=== PATIENT | male | born 1965 ===

== ENCOUNTER 2018-10-10 09:17 | Inpatient (IN) | payer MEDICARE, OTHER ==
[2018-10-10 09:21] VITALS: BMI 35.7
--- NOTE | 2018-10-10 10:07 | ED PDOC ---
HPI: SOB/CHF/COPD Time Seen by Provider: 10/10/18 09:30 Chief Complaint (Nursing): Shortness Of Breath Chief Complaint (Provider): Cough History Per: Patient History/Exam Limitations: no limitations Onset/Duration Of Symptoms: Days Current Symptoms Are (Timing): Still Present Additional Complaint(s): 52 y/o male presents to the ED for evaluation of several days of coughing. Patient states coughing is so severe, he has developed abdominal soreness. Patient notes he has been unable to sleep and feels feverish. Patient reports that after being unable to sleep, he had one episode of sleep walking last night when he fell. Patient is currently complaining of pain to the right hip. Otherwise, patient denies taking any medications for fever, chest pain, nausea and vomiting. PMD: Ha Donald Past Medical History Reviewed: Historical Data, Nursing Documentation, Vital Signs Vital Signs: Last Vital Signs Temp 97.7 F 10/10/18 09:22 Pulse 89 10/10/18 09:27 Resp 18 10/10/18 09:22 BP 174/101 H 10/10/18 09:27 Pulse Ox 96 10/10/18 09:27 - Medical History PMH: HTN, Pneumonia (Jun 2018), End Stage Renal Disease, Chronic Kidney Disease, Sleep Apnea - Surgical History Surgical History: No Surg Hx - Family History Family History: States: Unknown Family Hx - Immunization History Hx Tetanus Toxoid Vaccination: Yes Hx Influenza Vaccination: Yes Hx Pneumococcal Vaccination: Yes - Home Medications Home Medications: Ambulatory Orders Medication Instructions Recorded Atorvastatin [Lipitor] 10 mg PO DAILY 10/10/18 Ferric Citrate [Auryxia] 3 tab PO TID 10/10/18 Glipizide [Glipizide ER] 5 mg PO DAILY 10/10/18 Labetalol [Trandate] 200 mg PO DAILY 10/10/18 Linagliptin [Tradjenta] 5 mg PO DAILY 10/10/18 - Allergies Allergies/Adverse Reactions: Allergies Allergy/AdvReac Type Severity Reaction Status Date / Time No Known Allergies Allergy Verified 10/10/18 09:57 Review of Systems ROS Statement: Except As Marked, All Systems Reviewed And Found Negative Cardiovascular: Negative for: Chest Pain Respiratory: Positive for: Cough Gastrointestinal: Positive for: Abdominal Pain (SORENESS). Negative for: Nausea, Vomiting Neurological: Positive for: Other (Difficulty sleeping and sleep walking) Physical Exam - Reviewed Nursing Documentation Reviewed: Yes Vital Signs Reviewed: Yes - Physical Exam Appears: Positive for: No Acute Distress Head Exam: Positive for: ATRAUMATIC Skin: Positive for: Normal Color, Warm, Dry Eye Exam: Positive for: Normal appearance Neck: Positive for: Normal, Painless ROM, Supple Cardiovascular/Chest: Positive for: Regular Rate, Rhythm. Negative for: Murmur Respiratory: Positive for: Normal Breath Sounds. Negative for: Respiratory Distress Gastrointestinal/Abdominal: Positive for: Soft. Negative for: Tenderness Extremity: Positive for: Normal ROM (upper/lower), Swelling (Area of welling to the right hip ). Negative for: Other (ecchymosis) Neurological/Psych: Positive for: Awake, Alert, Oriented (x3). Negative for: Motor/Sensory Deficits - Laboratory Results Result Diagrams: 10/12/18 08:45 10/12/18 19:08 - ECG O2 Sat by Pulse Oximetry: 96 (RA) Pulse Ox Interpretation: Normal Medical Decision Making Medical Decision Making: Time: 1006 A/P: Workup for cough -- CXR -- Basic labs, -- Right hip XR due to fall -- Reassess patient. -- EKG -- BMP -- CBC with Differentials -- CXR Two Views -- Glucose, POC -- Hip Right XR -- Influenza A B Time: 1053 CXR RESULTS Date of service: 10/10/2018 HISTORY: cough COMPARISON: 11/06/2008 TECHNIQUE: Chest PA and lateral FINDINGS: LUNGS: Coalescent airspace opacity mid right lung zone present-an interval change. PLEURA: No significant pleural effusion identified. No pneumothorax apparent. CARDIOVASCULAR: No aortic atherosclerotic calcification present. Mild cardiomegaly. Probable mild concomitant pulmonary venous congestion. OSSEOUS STRUCTURES: Thoracic spondylosis. VISUALIZED UPPER ABDOMEN: Normal. OTHER FINDINGS: None. IMPRESSION: Interval extensive airspace opacity right mid lung zone-an infiltrate is compatible with the clinical history of cough. Follow-up to resolution recommended. Comments: Study marked for PA review . Time: 1139 -- Spoke to Dr. Donald patient to be admitted for emergent dialysis. Scribe Attestation: Documented by Marilin Trimble, acting as a scribe Linnea Guerrero MD. Provider Scribe Attestation: All medical record entries made by the Scribe were at my direction and personally dictated by me. I have reviewed the chart and agree that the record accurately reflects my personal performance of the history, physical exam, medical decision making, and the department course for this patient. I have also personally directed, reviewed, and agree with the discharge instructions and disposition. Disposition - Clinical Impression Clinical Impression: ESRF (end stage renal failure) - Disposition Disposition Time: 11:42 Condition: FAIR
[2018-10-10 10:44] LABS: BASO % 0.6 % (0.0-2.0); EOS # 0.4 K/uL (0.0-0.7); EOS % 6.4 % (0.0-4.0); HEMOGLOBIN 10.5 g/dL (12.0-18.0); LYMPH # 0.9 K/uL (1.0-4.3); LYMPH % 13.9 % (20.0-40.0); MEAN CELL VOLUME 92.6 fl (80.0-94.0); MEAN CORPUSCULAR HGB CONC 32.4 g/dL (33.0-37.0); MEAN PLATELET VOLUME 10.3 fl (7.2-11.7); MONO # 0.5 K/uL (0.0-0.8); MONO % 8.1 % (0.0-10.0); NEUT # 4.6 K/uL (1.8-7.0); NRBC % 0.1 % (0.0-0.0); RBC 3.51 Mil/uL (4.40-5.90); RED CELL DISTRIBUTION WIDTH 15.6 % (11.5-14.5); WHITE BLOOD COUNT 6.5 K/uL (4.8-10.8)
[2018-10-10 11:11] LABS: CALCIUM 8.7 mg/dL (8.4-10.2)
[2018-10-10] MEDS ORDERED: Albuterol-Ipratrop 3 mg / 0.5 (3 ml) UD INH STA (11:24)
--- NOTE | 2018-10-10 11:36 | RAD ---
Date of service: 10/10/2018 HISTORY: cough COMPARISON: 11/06/2008 TECHNIQUE: Chest PA and lateral FINDINGS: LUNGS: Coalescent airspace opacity mid right lung zone present-an interval change. PLEURA: No significant pleural effusion identified. No pneumothorax apparent. CARDIOVASCULAR: No aortic atherosclerotic calcification present. Mild cardiomegaly. Probable mild concomitant pulmonary venous congestion. OSSEOUS STRUCTURES: Thoracic spondylosis. VISUALIZED UPPER ABDOMEN: Normal. OTHER FINDINGS: None. IMPRESSION: Interval extensive airspace opacity right mid lung zone-an infiltrate is compatible with the clinical history of cough. Follow-up to resolution recommended. Comments: Study marked for PA review .
[2018-10-10] MEDS ORDERED: Albuterol-Ipratrop 3 mg / 0.5 (3 ml) UD ONE (11:52)
--- NOTE | 2018-10-10 12:55 | RAD ---
Date of service: 10/10/2018 PROCEDURE: Pelvis and right hip HISTORY: right hip Pain. No history of recent/ related trauma provided. COMPARISON: None TECHNIQUE: Standard protocol for this study/examination. FINDINGS: There are no osseous abnormalities to suggest fracture. The pelvic ring is intact. Preserved femoral-acetabular relationship. Negative study for protrusio, subluxation or dislocation. Degenerative changes: Mild and symmetrical. IMPRESSION: No acute findings related to/ accounting for the clinical presentation.
--- NOTE | 2018-10-10 17:37 | CARD ---
APPROVED REPORT Date of service: 10/10/2018 EKG Measurement Heart [id number] <Conclusion> Normal sinus rhythm Prolonged QT Abnormal ECG
--- NOTE | 2018-10-10 21:18 | CP.PCM.HP ---
History of Present Illness - History of Present Illness History of Present Illness: 52 y/o male presents to the ED for evaluation of one week of severe coughing. Patient notes he has been unable to sleep and feels fever. Patient is currently complaining of pain to the right hip. Patient with ESRF on HD he is not c/o with HD for one week. Otherwise, patient denies chest pain, nausea and vomiting. An infiltrate. Present on Admission - Present on Admission Any Indicators Present on Admission: No Review of Systems - Constitutional Constitutional: As Per HPI - EENT Eyes: As Per HPI - Cardiovascular Cardiovascular: As Per HPI - Respiratory Respiratory: Cough - Gastrointestinal Gastrointestinal: As Per HPI - Musculoskeletal Musculoskeletal: As Per HPI - Neurological Neurological: As Per HPI - Psychiatric Psychiatric: As Per HPI Past Patient History - Past Social History Smoking Status: Never Smoked - CARDIAC Hx Cardiac Disorders: Yes (CAD, HTN, ANGINA) - PULMONARY Hx Pneumonia: Yes (Jun 2018) Hx Sleep Apnea: Yes - HEENT Other/Comment: Right eye Floaters, Left eye Diabetic retinopathy - RENAL Hx Chronic Kidney Disease: Yes (ESRD) - ENDOCRINE/METABOLIC Hx Endocrine Disorders: Yes (Diabetes) - HEMATOLOGICAL/ONCOLOGICAL Hx Blood Disorders: No - MUSCULOSKELETAL/RHEUMATOLOGICAL Hx Falls: Yes (10/09/18 Pt. Fell during sleep walking episode.) - PSYCHIATRIC Hx Substance Use: No - SURGICAL HISTORY Hx Angiogram: Yes Hx Cardiac Catheterization: Yes () Hx Eye Surgery: Yes (Diabetic retinopathy, Floaters) Other/Comment: Left heart cathertization, Selective coronary angiography, Left ventriculogram, Percutaneous drug-eluting stent implantation in the distal right coronary artery. - ANESTHESIA Hx Anesthesia: Yes Hx Anesthesia Reactions: No Hx Malignant Hyperthermia: No Meds Allergies/Adverse Reactions: Allergies Allergy/AdvReac Type Severity Reaction Status Date / Time No Known Allergies Allergy Verified 10/10/18 09:57 Physical Exam - Constitutional Appears: Non-toxic - Head Exam Head Exam: ATRAUMATIC, NORMAL INSPECTION, NORMOCEPHALIC - Eye Exam Eye Exam: Normal appearance - ENT Exam ENT Exam: Mucous Membranes Moist - Neck Exam Neck exam: Positive for: Full Rom - Respiratory Exam Respiratory Exam: Decreased Breath Sounds, Rhonchi - Cardiovascular Exam Cardiovascular Exam: REGULAR RHYTHM, +S1, +S2 - GI/Abdominal Exam GI & Abdominal Exam: Normal Bowel Sounds - Extremities Exam Extremities exam: Positive for: normal inspection Results - Vital Signs Recent Vital Signs: Last Vital Signs Temp 98.6 F 10/10/18 20:19 Pulse 100 H 10/10/18 20:19 Resp 16 10/10/18 20:19 BP 166/97 H 10/10/18 20:19 Pulse Ox 95 10/10/18 20:19 - Labs Result Diagrams: 10/10/18 10:20 10/10/18 10:20 Labs: Laboratory Results - last 24 hr 10/10/18 10/10/18 10/10/18 09:41 10:20 10:20 WBC 6.5 RBC 3.51 L Hgb 10.5 L Hct 32.5 L MCV 92.6 MCH 30.0 MCHC 32.4 L RDW 15.6 H Plt Count 180 MPV 10.3 Neut % (Auto) 71.0 Lymph % (Auto) 13.9 L [place] % (Auto) 8.1 Eos % (Auto) 6.4 H Baso % (Auto) 0.6 Neut # (Auto) 4.6 Lymph # (Auto) 0.9 L [place] # (Auto) 0.5 Eos # (Auto) 0.4 Baso # (Auto) 0.0 Sodium 143 Potassium 5.8 H Chloride 99 Carbon Dioxide 22 Anion Gap 28 H BUN 117 H* Creatinine 15.8 H* Est GFR ( Amer) 4 Est GFR (Non-Af Amer) 3 POC Glucose (mg/dL) 217 H Random Glucose 202 H Calcium 8.7 Influenza Typ A,B (EIA) 10/10/18 10:20 WBC RBC Hgb Hct MCV MCH MCHC RDW Plt Count MPV Neut % (Auto) Lymph % (Auto) [place] % (Auto) Eos % (Auto) Baso % (Auto) Neut # (Auto) Lymph # (Auto) [place] # (Auto) Eos # (Auto) Baso # (Auto) Sodium Potassium Chloride Carbon Dioxide Anion Gap BUN Creatinine Est GFR ( Amer) Est GFR (Non-Af Amer) POC Glucose (mg/dL) Random Glucose Calcium Influenza Typ A,B (EIA) Negative for flu a/b Assessment & Plan (1) ESRF (end stage renal failure) Status: Acute (2) Pneumonia Status: Acute (3) Congestive heart disease Status: Acute (4) Diabetes Status: Acute - Assessment and Plan (Free Text) Plan: As per orders
[2018-10-10] MEDS: Insulin Regular 100 units/ml SC SCH (22:45)
--- NOTE | 2018-10-10 23:56 | CP.PCM.CON ---
History of Present Illness - History of Present Illness History of Present Illness: renal consult note 52 yr old with esrd. on hd tts at [facility], htn is admitted with sob. he has missed hd for a week as was travelling. no fever or chills. in er noted to be in volume overload with cxr showing pulm edema complete ros is negative meds and labs reviewed pmh as above social hx non smoker no alcohol fam hx negative for kidney disease vitals reviewed in resp dsitress heent normal op moist no jvd s1s2 preent bl crepts present abd soft edema + ao times 3 cooperative esrd/chf/htn/hyperkalemia hd tts, will do today , assess tomorrow fo extar session hyperkalemia should improve with hd chf/resp distress: uf as tolerated anemia stable epo as needed i have ordered a phos level for morning resume home meds Past Patient History - Past Social History Smoking Status: Never Smoked - CARDIAC Hx Cardiac Disorders: Yes (CAD, HTN, ANGINA) - PULMONARY Hx Pneumonia: Yes (Jun 2018) Hx Sleep Apnea: Yes - HEENT Other/Comment: Right eye Floaters, Left eye Diabetic retinopathy - RENAL Hx Chronic Kidney Disease: Yes (ESRD) - ENDOCRINE/METABOLIC Hx Endocrine Disorders: Yes (Diabetes) - HEMATOLOGICAL/ONCOLOGICAL Hx Blood Disorders: No - MUSCULOSKELETAL/RHEUMATOLOGICAL Hx Falls: Yes (10/09/18 Pt. Fell during sleep walking episode.) - PSYCHIATRIC Hx Substance Use: No - SURGICAL HISTORY Hx Angiogram: Yes Hx Cardiac Catheterization: Yes () Hx Eye Surgery: Yes (Diabetic retinopathy, Floaters) Other/Comment: Left heart cathertization, Selective coronary angiography, Left ventriculogram, Percutaneous drug-eluting stent implantation in the distal right coronary artery. - ANESTHESIA Hx Anesthesia: Yes Hx Anesthesia Reactions: No Hx Malignant Hyperthermia: No Meds Allergies/Adverse Reactions: Allergies Allergy/AdvReac Type Severity Reaction Status Date / Time No Known Allergies Allergy Verified 10/10/18 09:57 - Medications Medications: Current Medications Atorvastatin Calcium (Lipitor) 10 mg PO DAILY [facility] Glipizide (Glucotrol Xl) 5 mg PO DAILYWM [facility] Home Med (Ferric Citrate [Auryxia]) 3 tab PO TID [facility] Ceftriaxone Sodium 1 gm/ (Sodium Chloride) 100 mls @ 100 mls/hr IVPB DAILY [facility]; Protocol Insulin Human Regular (Humulin R) 0 units SC ACHS [facility]; Protocol Last Admin: 10/10/18 22:45 Dose: Not Given Labetalol HCl (Trandate) 200 mg PO DAILY [facility] Sitagliptin Phosphate (Januvia) 25 mg PO DAILY [facility] Results - Vital Signs Recent Vital Signs: Last Vital Signs Temp 98.6 F 10/10/18 20:19 Pulse 100 H 10/10/18 20:19 Resp 16 10/10/18 20:19 BP 166/97 H 10/10/18 20:19 Pulse Ox 95 10/10/18 20:19 - Labs Result Diagrams: 10/10/18 10:20 10/10/18 10:20 Labs: Laboratory Results - last 24 hr 10/10/18 10/10/18 10/10/18 09:41 10:20 10:20 WBC 6.5 RBC 3.51 L Hgb 10.5 L Hct 32.5 L MCV 92.6 MCH 30.0 MCHC 32.4 L RDW 15.6 H Plt Count 180 MPV 10.3 Neut % (Auto) 71.0 Lymph % (Auto) 13.9 L [place] % (Auto) 8.1 Eos % (Auto) 6.4 H Baso % (Auto) 0.6 Neut # (Auto) 4.6 Lymph # (Auto) 0.9 L [place] # (Auto) 0.5 Eos # (Auto) 0.4 Baso # (Auto) 0.0 Sodium 143 Potassium 5.8 H Chloride 99 Carbon Dioxide 22 Anion Gap 28 H BUN 117 H* Creatinine 15.8 H* Est GFR ( Amer) 4 Est GFR (Non-Af Amer) 3 POC Glucose (mg/dL) 217 H Random Glucose 202 H Calcium 8.7 Influenza Typ A,B (EIA) 10/10/18 10/10/18 10:20 22:16 WBC RBC Hgb Hct MCV MCH MCHC RDW Plt Count MPV Neut % (Auto) Lymph % (Auto) [place] % (Auto) Eos % (Auto) Baso % (Auto) Neut # (Auto) Lymph # (Auto) [place] # (Auto) Eos # (Auto) Baso # (Auto) Sodium Potassium Chloride Carbon Dioxide Anion Gap BUN Creatinine Est GFR ( Amer) Est GFR (Non-Af Amer) POC Glucose (mg/dL) 240 H Random Glucose Calcium Influenza Typ A,B (EIA) Negative for flu a/b
[2018-10-11] MEDS ORDERED: Albuterol-Ipratrop 3 mg / 0.5 (3 ml) UD INH STA (01:32)
--- NOTE | 2018-10-11 02:01 | CP.PCM.PCO ---
Addendum Addendum: 10/11/18 01:35 The gag writer was called for this 52 y/o M due to chest pain and SOB. Pt complains of mid-sternum chest pain, began 1 hour ago, pressure-like, 8/10 intensity, non- radiating that aggravates with coughing. Pt reports SOB and non-productive cough that also aggravated 1 hour ago. --O2 sat is 94-96% at 4L/min, BP 176/95, HR 95, RR 18. --Pt is lying on bed, uncomfortable, coughing, HD device by bedside not started yet. S1 and S2 present, regular rhythm. Decreased breath sound and ronchi on R lung hi. --Electrocardiogram ordered. No ST changes or acute abnormalities observed when compared with admission EKG. --Nitroglycerin SL ordered, first dose provided relief to 4/10 pain intensity after 5 minutes. BP 160/100. Will administer a 2nd dose. --STAT Duoneb was ordered. 52 y/o M with ESRD admitted for pneumonia, had chest pain and aggravation of SOB. --Troponin x2 ordered, Q4H. (may be increased since ESRD, will look at increase level) --Proceed with hemodialysis. --Considering Nitro paste if recurrent pain.
[2018-10-11 06:15] LABS: TROPONIN I 0.055 ng/mL (0.00-0.120)
[2018-10-11 07:24] LABS: CALCIUM 8.8 mg/dL (8.4-10.2)
--- NOTE | 2018-10-11 09:10 | CP.PCM.PN ---
Subjective - Date & Time of Evaluation Date of Evaluation: 10/11/18 Time of Evaluation: 09:08 - Subjective Subjective: RENAL s: seen and examined sob is improved but still w/ some sob no cp today. finished dialysis a couple hours ago VSS gen: nad sclera: anicteric op: clear neck: supple cv: +s1+s2 no rub lungs: coarse bs b/l abd: soft nt nd no organomegaly ext: no edema neuro: A+Ox3 no focal defecit psych: nml affect skin no rash IMPRESSION esrd/chf/htn/hyperkalemia/pnemonia/anemia/secondary hyperpara HD TTS - next hd tomorrow, finished hd a couple horus ago K is improved bp stable abx for PNA per primary team phos at goal bp stble Objective - Vital Signs/Intake and Output Vital Signs (last 24 hours): Temp Pulse Resp BP Pulse Ox 98.5 F 87 20 142/88 94 L 10/11/18 08:35 10/11/18 08:35 10/11/18 08:35 10/11/18 08:35 10/11/18 08:35 - Medications Medications: Current Medications Atorvastatin Calcium (Lipitor) 10 mg PO DAILY [facility] Glipizide (Glucotrol Xl) 5 mg PO DAILYWM [facility] Home Med (Ferric Citrate [Auryxia]) 3 tab PO TID [facility] Ceftriaxone Sodium 1 gm/ (Sodium Chloride) 100 mls @ 100 mls/hr IVPB DAILY [facility]; Protocol Insulin Human Regular (Humulin R) 0 units SC ACHS [facility]; Protocol Last Admin: 10/10/18 22:45 Dose: Not Given Labetalol HCl (Trandate) 200 mg PO DAILY [facility] Nitroglycerin (Nitrostat Sl Tab) 0.4 mg SL Q5M PRN PRN Reason: Pain, severe (8-10) Last Admin: 10/11/18 01:51 Dose: 0.4 mg Sitagliptin Phosphate (Januvia) 25 mg PO DAILY [facility] - Labs Labs: 10/10/18 10:20 10/11/18 05:20
[2018-10-11] MEDS: GlipiZIDE 5 mg SR Tab PO SCH (09:59)
[2018-10-11] MEDS: Insulin Regular 100 units/ml SC SCH ×4 (09:59→22:18)
--- NOTE | 2018-10-11 11:25 | CP.PCM.PN ---
Subjective - Date & Time of Evaluation Date of Evaluation: 10/11/18 Time of Evaluation: 11:25 - Subjective Subjective: Patient condition improving. Will follow cxr Objective - Vital Signs/Intake and Output Vital Signs (last 24 hours): Temp Pulse Resp BP Pulse Ox 98.5 F 87 20 142/88 94 L 10/11/18 08:35 10/11/18 08:35 10/11/18 08:35 10/11/18 08:35 10/11/18 08:35 - Medications Medications: Current Medications Atorvastatin Calcium (Lipitor) 10 mg PO DAILY [facility] Last Admin: 10/11/18 10:01 Dose: 10 mg Glipizide (Glucotrol Xl) 5 mg PO DAILYWM [facility] Last Admin: 10/11/18 09:59 Dose: 5 mg Home Med (Ferric Citrate [Auryxia]) 3 tab PO TID [facility] Ceftriaxone Sodium 1 gm/ (Sodium Chloride) 100 mls @ 100 mls/hr IVPB DAILY [facility]; Protocol Last Admin: 10/11/18 10:02 Dose: 100 mls/hr Insulin Human Regular (Humulin R) 0 units SC ACHS [facility]; Protocol Last Admin: 10/11/18 09:59 Dose: 1 units Labetalol HCl (Trandate) 200 mg PO DAILY [facility] Last Admin: 10/11/18 10:02 Dose: 200 mg Nitroglycerin (Nitrostat Sl Tab) 0.4 mg SL Q5M PRN PRN Reason: Pain, severe (8-10) Last Admin: 10/11/18 01:51 Dose: 0.4 mg Sitagliptin Phosphate (Januvia) 25 mg PO DAILY [facility] Last Admin: 10/11/18 10:01 Dose: 25 mg Vitamin B Complex/Vit C/Folic Acid (Nephro-Cecilia) 1 tab PO DAILY [facility] - Labs Labs: 10/10/18 10:20 10/11/18 05:20 - Constitutional Appears: Non-toxic - Head Exam Head Exam: ATRAUMATIC, NORMAL INSPECTION, NORMOCEPHALIC - Eye Exam Eye Exam: Normal appearance - ENT Exam ENT Exam: Mucous Membranes Moist - Neck Exam Neck Exam: Full ROM - Respiratory Exam Respiratory Exam: Decreased Breath Sounds - Cardiovascular Exam Cardiovascular Exam: REGULAR RHYTHM, +S1, +S2 - GI/Abdominal Exam GI & Abdominal Exam: Soft, Normal Bowel Sounds - Neurological Exam Neurological Exam: Alert, Awake, CN II-XII Intact, Normal Gait, Oriented x3 - Psychiatric Exam Psychiatric exam: Normal Affect - Skin Skin Exam: Intact Assessment and Plan (1) ESRF (end stage renal failure) Status: Acute (2) Pneumonia Status: Acute (3) Congestive heart disease Status: Acute (4) Diabetes Status: Acute
--- NOTE | 2018-10-11 12:31 | RAD ---
Date of service: 10/11/2018 HISTORY: chf pneumonia COMPARISON: October 10, 2018. TECHNIQUE: Chest PA and lateral FINDINGS: LUNGS: Extensive infiltrates primarily affecting the right lower lobe. Less pronounced changes identified at the right base. PLEURA: No significant pleural effusion identified. No pneumothorax apparent. CARDIOVASCULAR: No aortic atherosclerotic calcification present. Cardiomegaly. No evidence of acute, significant cardiovascular disease. OSSEOUS STRUCTURES: No significant abnormalities. VISUALIZED UPPER ABDOMEN: Normal. OTHER FINDINGS: None. IMPRESSION: Stable bilateral lower lobe infiltrates are better visualized on the current study. These affect the right lower lobe to a greater extent left.
--- NOTE | 2018-10-11 14:46 | CP.PCM.CON ---
History of Present Illness - History of Present Illness History of Present Illness: 52 y/o male presents to the ED for evaluation of several days of coughing. Patient notes he has been unable to sleep and feels feverish. Patient reports that after being unable to sleep, He recently missed a week of HD ID consulted for antibiotic management - Medical History PMH: HTN, Pneumonia (Jun 2018), End Stage Renal Disease, Chronic Kidney Disease, Sleep Apnea - Surgical History right arm AV Fistula Review of Systems - Constitutional Constitutional: As Per HPI - EENT Eyes: absent: As Per HPI, Blind Spots, Blurred Vision, Change in Vision, Decr eased Night Vision, Diplopia, Discharge, Dry Eye, Exophthalmos, Floaters, Irritation, Itchy Eyes, Loss of Peripheral Vision, Pain, Photophobia, Requires Corrective Lenses, Sees Flashes, Spots in Vision, Tunnel Vision, Other Visual Disturbances, Loss of Vision, Other Ears: absent: As Per HPI, Decreased Hearing, Ear Discharge, Ear Pain, Tinnitus, Abnormal Hearing, Disequilibrium, Dizziness, Other Nose/Mouth/Throat: absent: As Per HPI, Epistaxis, Nasal Congestion, Nasal Discharge, Nasal Obstruction, Nasal Trauma, Nose Pain, Post Nasal Drip, Sinus Pain, Sinus Pressure, Bleeding Gums, Change in Voice, Dental Pain, Dry Mouth, Dysphagia, Halitosis, Hoarsness, Lip Swelling, Mouth Lesions, Mouth Pain, Odynophagia, Sore Throat, Throat Swelling, Tongue Swelling, Facial Pain, Neck Pain, Neck Mass, Other - Cardiovascular Cardiovascular: As Per HPI - Respiratory Respiratory: As Per HPI, Cough, Dyspnea - Gastrointestinal Gastrointestinal: absent: As Per HPI, Abdominal Pain, Belching, Bloating, Change in Bowel Habits, Change in Stool Character, Coffee Ground Emesis, Constipation, Cramping, Diarrhea, Dyspepsia, Dysphagia, Early Satiety, Excessive Flatus, Fecal Incontinence, Heartburn, Hematemesis, Hematochezia, Loose Stools, Melena, Nausea, Odynophagia, Temesmus, Vomiting, Other - Genitourinary Genitourinary: As Per HPI - Musculoskeletal Musculoskeletal: absent: As Per HPI, Abnormal Gait, Arthralgias, Atrophy, Back Pain, Deformity, Joint Swelling, Limited Range of Motion, Loss of Height, Muscle Cramps, Muscle Weakness, Myalgias, Neck Pain, Numbness, Radiating Pain into Limb, Stiffness, Tingling, Other - Integumentary Integumentary: absent: As Per HPI, Acne, Alopecia, Bleeding Lesions, Change in Hair, Change in Nails, Change in Pigmentation, Changing Lesions, Dry Skin, Erythema, Furuncle, Hirsutism, Lesions, New Lesions, Non-Healing Lesions, Photosensitivity, Pruritus, Rash, Skin Pain, Skin Ulcer, Sores, Striae, Swelling, Unusual Bruising, Wounds, Jaundice, Other - Neurological Neurological: absent: As Per HPI, Abnormal Gait, Abnormal Hearing, Abnormal Movements, Abnormal Speech, Behavioral Changes, Burning Sensations, Confusion, Convulsions, Disequilibrium, Dizziness, Numbness, Focal Weakness, Frequent Falls, Headaches, Lack of Coordination, Loss of Vision, Memory Loss, Paresthesias, Radicular Pain, Restless Legs, Sensory Deficit, Syncope, Tingling, Tremor, Vertigo, Weakness, Other Visual Disturbances, Other - Psychiatric Psychiatric: absent: As Per HPI, Abnormal Sleep Pattern, Anhedonia, Anxiety, Auditory Hallucinations, Behavioral Changes, Change in Appetite, Change in Libido, Confusion, Depression, Difficulty Concentrating, Hallucinations, Homicidal Ideation, Hopelessness, Irritability, Memory Loss, Mood Swings, Panic Attacks, Paranoia, Suicidal Ideation, Visual Hallucinations, Tactile Hallucinations, Other - Endocrine Endocrine: absent: As Per HPI, Change in Body Appearance, Change in Libido, Cold Intolorance, Deepening of Voice, Excessive Sweating, Fatigue, Flushing, Heat Intolorance, Increase in Ring/Shoe/Hat Size, Palpitations, Polydipsia, Polyphagia, Polyuria, Other - Hematologic/Lymphatic Hematologic: absent: As Per HPI, Easy Bleeding, Easy Bruising, Lymphadenopathy, Other Past Patient History - Past Medical History & Family History Past Medical History?: Yes - Past Social History Smoking Status: Never Smoked - CARDIAC Hx Cardiac Disorders: Yes (CAD, HTN, ANGINA) - PULMONARY Hx Pneumonia: Yes (Jun 2018) Hx Sleep Apnea: Yes - NEUROLOGICAL Hx Neurological Disorder: No - HEENT Other/Comment: Right eye Floaters, Left eye Diabetic retinopathy - RENAL Hx Chronic Kidney Disease: Yes (ESRD) - ENDOCRINE/METABOLIC Hx Endocrine Disorders: Yes (Diabetes) - HEMATOLOGICAL/ONCOLOGICAL Hx Blood Disorders: No - INTEGUMENTARY Hx Dermatological Problems: No - MUSCULOSKELETAL/RHEUMATOLOGICAL Hx Falls: Yes (10/09/18 Pt. Fell during sleep walking episode.) - GASTROINTESTINAL Hx Gastrointestinal Disorders: No - GENITOURINARY/GYNECOLOGICAL Hx Genitourinary Disorders: No - PSYCHIATRIC Hx Substance Use: No - SURGICAL HISTORY Hx Angiogram: Yes Hx Cardiac Catheterization: Yes () Hx Eye Surgery: Yes (Diabetic retinopathy, Floaters) Other/Comment: Left heart cathertization, Selective coronary angiography, Left ventriculogram, Percutaneous drug-eluting stent implantation in the distal right coronary artery. - ANESTHESIA Hx Anesthesia: Yes Hx Anesthesia Reactions: No Hx Malignant Hyperthermia: No Meds Allergies/Adverse Reactions: Allergies Allergy/AdvReac Type Severity Reaction Status Date / Time No Known Allergies Allergy Verified 10/10/18 09:57 - Medications Medications: Current Medications Atorvastatin Calcium (Lipitor) 10 mg PO DAILY [facility] Last Admin: 10/11/18 10:01 Dose: 10 mg Glipizide (Glucotrol Xl) 5 mg PO DAILYWM [facility] Last Admin: 10/11/18 09:59 Dose: 5 mg Home Med (Ferric Citrate [Auryxia]) 3 tab PO TID [facility] Ceftriaxone Sodium 1 gm/ (Sodium Chloride) 100 mls @ 100 mls/hr IVPB DAILY [facility]; Protocol Last Admin: 10/11/18 10:02 Dose: 100 mls/hr Insulin Human Regular (Humulin R) 0 units SC ACHS [facility]; Protocol Last Admin: 10/11/18 12:26 Dose: 2 units Labetalol HCl (Trandate) 200 mg PO DAILY [facility] Last Admin: 10/11/18 10:02 Dose: 200 mg Nitroglycerin (Nitrostat Sl Tab) 0.4 mg SL Q5M PRN PRN Reason: Pain, severe (8-10) Last Admin: 10/11/18 01:51 Dose: 0.4 mg Sitagliptin Phosphate (Januvia) 25 mg PO DAILY [facility] Last Admin: 10/11/18 10:01 Dose: 25 mg Vitamin B Complex/Vit C/Folic Acid (Nephro-Cecilia) 1 tab PO DAILY [facility] Physical Exam - Constitutional Appears: Non-toxic, No Acute Distress, Chronically Ill - Head Exam Head Exam: ATRAUMATIC, NORMAL INSPECTION, NORMOCEPHALIC - Eye Exam Eye Exam: EOMI, Normal appearance, PERRL Pupil Exam: NORMAL ACCOMODATION, PERRL - ENT Exam ENT Exam: Mucous Membranes Moist, Normal Exam - Neck Exam Neck exam: Positive for: Normal Inspection - Respiratory Exam Respiratory Exam: Decreased Breath Sounds, Prolonged Expiratory Phase, Rales, Rhonchi - Cardiovascular Exam Cardiovascular Exam: REGULAR RHYTHM, +S1, +S2 - GI/Abdominal Exam GI & Abdominal Exam: Normal Bowel Sounds, Soft. absent: Tenderness - Rectal Exam Rectal Exam: NORMAL INSPECTION - Exam Exam: Circumcision, NORMAL INSPECTION External exam: NORMAL EXTERNAL EXAM Speculum exam: NORMAL SPECULUM EXAM Bimanual exam: NORMAL BIMANUAL EXAM - Extremities Exam Extremities exam: Positive for: normal inspection - Back Exam Back exam: NORMAL INSPECTION - Neurological Exam Neurological exam: Alert, CN II-XII Intact, Normal Gait, Oriented x3, Reflexes Normal - Psychiatric Exam Psychiatric exam: Normal Affect, Normal Mood - Skin Skin Exam: Dry, Intact, Normal Color, Warm Additional comments: AV fistula wnl right arm Results - Vital Signs Recent Vital Signs: Last Vital Signs Temp 98.4 F 10/11/18 12:41 Pulse 91 H 10/11/18 12:41 Resp 20 10/11/18 12:41 BP 122/75 10/11/18 12:41 Pulse Ox 95 10/11/18 12:41 - Labs Result Diagrams: 10/12/18 08:45 10/12/18 08:45 Labs: Laboratory Results - last 24 hr 10/10/18 10/11/18 10/11/18 22:16 02:15 05:20 Sodium Potassium Chloride Carbon Dioxide Anion Gap BUN Creatinine Est GFR ( Amer) Est GFR (Non-Af Amer) POC Glucose (mg/dL) 240 H Random Glucose Calcium Phosphorus 3.5 Troponin I 0.0450 0.0550 10/11/18 10/11/18 10/11/18 05:20 05:39 11:12 Sodium 135 Potassium 3.5 L Chloride 94 L Carbon Dioxide 23 Anion Gap 22 H BUN 53 H Creatinine 8.0 H* D Est GFR ( Amer) 9 Est GFR (Non-Af Amer) 7 POC Glucose (mg/dL) 166 H 239 H Random Glucose 151 H Calcium 8.8 Phosphorus Troponin I Assessment & Plan (1) Congestive heart disease Status: Acute (2) Diabetes Status: Acute (3) ESRF (end stage renal failure) Status: Acute (4) Pneumonia Status: Acute - Assessment and Plan (Free Text) Assessment: await cultures and serologies cont IV antibiotics dialysis will help fluid overload- follow up CXR
[2018-10-11] MEDS ORDERED: Sodium Chloride 3% for Inhalation 4 ML VIAL.NEB IH PRN (14:47)
--- NOTE | 2018-10-11 17:44 | CARD ---
APPROVED REPORT Date of service: 10/11/2018 EXAM: Two-dimensional and M-mode echocardiogram with Doppler and color Doppler. Other Information Quality : GoodRhythm : NSR INDICATION Congestive Heart Failure 2D DIMENSIONS IVSd1.44 (0.7-1.1cm)LVDd5.35 (3.9-5.9cm) LVOT Diameter2.35 (1.8-2.4cm)PWd1.19 (0.7-1.1cm) IVSs1.62 (0.8-1.2cm)LVDs4.28 (2.5-4.0cm) FS (%) 20.0 %PWs1.56 (0.8-1.2cm) M-Mode DIMENSIONS Left Atrium (MM)5.59 (2.5-4.0cm)IVSd1.06 (0.7-1.1cm) Aortic Root3.74 (2.2-3.7cm)LVDd7.41 (4.0-5.6cm) Aortic Cusp Exc.1.89 (1.5-2.0cm)PWd1.32 (0.7-1.1cm) IVSs1.65 cmFS (%) 25 % LVDs5.56 (2.0-3.8cm)PWs1.79 cm Aortic Valve AoV Peak Fbvwdwsm638.1cm/sAoV VTI31.2cmAO Peak GR.12mmHg LVOT Peak Wznthnjj833.6cm/sLVOT VTI21.53cmAO Mean GR.7mmHg EMILY (VMAX)1.30pf8YRA (VTI)1.34cm2 Mitral Valve MV E Myhqftab872.6cm/sMV DECEL [id number] A Indnvmvl60.3cm/s MV JJD41rtF/A ratio1.6MVA (PHT)4.16cm2 TDI Lateral E' Peak V14.34cm/sMedial E' Peak V6.36cm/sE/Lateral E'9.0 E/Medial E'20.4 LEFT VENTRICLE The left ventricle is normal size. There is mild concentric left ventricular hypertrophy. The systolic function is moderately impaired. The estimated ejection fraction is 40-45% There is anterolateral wall hypokinesis. Transmitral Doppler flow pattern is Grade II-pseudonormal filling dynamics. No left ventricle thrombus noted on this study. There is no ventricular septal defect visualized. There is no left ventricular aneurysm. There is no mass noted in the left ventricle. RIGHT VENTRICLE The right ventricle is normal size. There is normal right ventricular wall thickness. The right ventricular systolic function is normal. ATRIA The left atrium is severely dilated. The right atrium size is normal. The interatrial septum is intact with no evidence for an atrial septal defect. AORTIC VALVE The aortic valve is normal in structure. Calcified cusps. Mild aortic regurgitation is present. There is no aortic valvular stenosis. There is no aortic valvular vegetation. MITRAL VALVE The mitral valve is normal in structure. There is no evidence of mitral valve prolapse. There is no mitral valve stenosis. There is mild mitral valve regurgitation noted. TRICUSPID VALVE The tricuspid valve is normal in structure. There is mild tricuspid valve regurgitation noted. RVSP is calculated at 20 mm Hg. There is no tricuspid valve prolapse or vegetation. There is no tricuspid valve stenosis. PULMONIC VALVE The pulmonary valve is normal in structure. There is no pulmonic valvular regurgitation. There is no pulmonic valvular stenosis. GREAT VESSELS The aortic root is normal in size. The ascending aorta is normal in size. The pulmonary artery is normal. The IVC is normal in size and collapses >50% with inspiration. PERICARDIAL EFFUSION There is no pericardial effusion. There is no pleural effusion. <Conclusion> There is mild concentric left ventricular hypertrophy. The systolic function is moderately impaired. The estimated ejection fraction is 40-45% There is anterolateral wall hypokinesis. Transmitral Doppler flow pattern is Grade II-pseudonormal filling dynamics. The left atrium is severely dilated. Mild aortic regurgitation is present. There is mild mitral valve regurgitation noted. There is mild tricuspid valve regurgitation noted. There is mild tricuspid valve regurgitation noted. RVSP is calculated at 20 mm Hg.
--- NOTE | 2018-10-11 22:28 | CARD ---
APPROVED REPORT Date of service: 10/10/2018 EKG Measurement Heart [id number] <Conclusion> Normal sinus rhythm Prolonged QT Abnormal ECG
[2018-10-12] MEDS ORDERED: Albuterol-Ipratrop 3 mg / 0.5 (3 ml) UD INH PRN (07:53)
[2018-10-12] MEDS: GlipiZIDE 5 mg SR Tab PO SCH (08:53)
[2018-10-12] MEDS: Insulin Regular 100 units/ml SC SCH ×4 (08:55→22:19)
[2018-10-12] MEDS: Multivitamin Vitamin B Complex (Nephro-Vite) Tab PO SCH (09:01)
[2018-10-12 09:21] LABS: BASO % 0.4 % (0.0-2.0); EOS # 0.1 K/uL (0.0-0.7); EOS % 1.6 % (0.0-4.0); HEMOGLOBIN 10.6 g/dL (12.0-18.0); LYMPH # 0.6 K/uL (1.0-4.3); LYMPH % 8.2 % (20.0-40.0); MEAN CELL VOLUME 92.5 fl (80.0-94.0); MEAN CORPUSCULAR HEMOGLOBIN 30.5 pg (27.0-31.0); MEAN CORPUSCULAR HGB CONC 32.9 g/dL (33.0-37.0); MEAN PLATELET VOLUME 10.1 fl (7.2-11.7); MONO # 0.8 K/uL (0.0-0.8); MONO % 9.9 % (0.0-10.0); NEUT # 6.2 K/uL (1.8-7.0); NEUT % 79.9 % (50.0-75.0); PLATELET COUNT 169 K/uL (130-400); RBC 3.48 Mil/uL (4.40-5.90); RED CELL DISTRIBUTION WIDTH 15.3 % (11.5-14.5); WHITE BLOOD COUNT 7.8 K/uL (4.8-10.8)
[2018-10-12 09:38] LABS: CALCIUM 8.6 mg/dL (8.4-10.2)
[2018-10-12 11:33] LABS: ANISOCYTOSIS SLIGHT; EOSINOPHIL 2 % (0-7); HYPOCHROMIC SLIGHT; LARGE PLATELETS PRESENT; LYMPHOCYTE 10 % (20-50); METAMYELOCYTE 2 % (0-0); MONOCYTE 8 % (0-10); MYELOCYTE 1 % (0-0); NEUTROPHIL 77 % (42-75); OVALOCYTES SLIGHT; PLATELET ESTIMATE NORMAL (NORMAL); TEARDROP CELLS SLIGHT; TOTAL CELLS COUNTED 100
--- NOTE | 2018-10-12 12:54 | CP.PCM.PN ---
Subjective - Date & Time of Evaluation Date of Evaluation: 10/12/18 Time of Evaluation: 12:56 - Subjective Subjective: Patient still c/o SOB, cough. He looks plethoric. The crx reveled bilateral pneumonia. He still congested, he was not c/o with HD. Will continue present rx Objective - Vital Signs/Intake and Output Vital Signs (last 24 hours): Temp Pulse Resp BP Pulse Ox 98.2 F 94 H 20 136/81 95 10/12/18 08:42 10/12/18 08:42 10/12/18 08:42 10/12/18 08:42 10/12/18 08:42 - Medications Medications: Current Medications Albuterol/Ipratropium (Duoneb 3 Mg/0.5 Mg (3 Ml) Ud) 3 ml INH RQ6 PRN PRN Reason: Shortness of Breath Atorvastatin Calcium (Lipitor) 10 mg PO DAILY [facility] Last Admin: 10/12/18 09:01 Dose: 10 mg Glipizide (Glucotrol Xl) 5 mg PO DAILYWM [facility] Last Admin: 10/12/18 08:53 Dose: 5 mg Home Med (Ferric Citrate [Auryxia]) 3 tab PO TID [facility] Ceftriaxone Sodium 1 gm/ (Sodium Chloride) 100 mls @ 100 mls/hr IVPB DAILY [facility]; Protocol Last Admin: 10/11/18 10:02 Dose: 100 mls/hr Vancomycin HCl 1 gm/ Sodium (Chloride) 250 mls @ 166.667 mls/hr IVPB MWF [facility]; Protocol Insulin Human Regular (Humulin R) 0 units SC ACHS [facility]; Protocol Last Admin: 10/12/18 08:55 Dose: 2 units Labetalol HCl (Trandate) 200 mg PO DAILY [facility] Last Admin: 10/12/18 09:02 Dose: 200 mg Nitroglycerin (Nitrostat Sl Tab) 0.4 mg SL Q5M PRN PRN Reason: Pain, severe (8-10) Last Admin: 10/11/18 01:51 Dose: 0.4 mg Sitagliptin Phosphate (Januvia) 25 mg PO DAILY [facility] Last Admin: 10/12/18 08:54 Dose: 25 mg Vitamin B Complex/Vit C/Folic Acid (Nephro-Cecilia) 1 tab PO DAILY [facility] Last Admin: 10/12/18 09:01 Dose: 1 tab - Labs Labs: 03/23/19 08:45 10/12/18 08:45 - Constitutional Appears: Chronically Ill - Head Exam Head Exam: ATRAUMATIC, NORMAL INSPECTION, NORMOCEPHALIC - Eye Exam Eye Exam: Normal appearance - ENT Exam ENT Exam: Mucous Membranes Moist - Neck Exam Neck Exam: Full ROM - Respiratory Exam Respiratory Exam: Decreased Breath Sounds, Rhonchi - Cardiovascular Exam Cardiovascular Exam: REGULAR RHYTHM, +S1, +S2 - GI/Abdominal Exam GI & Abdominal Exam: Soft, Normal Bowel Sounds - Neurological Exam Neurological Exam: Alert, Awake, CN II-XII Intact, Oriented x3 - Psychiatric Exam Psychiatric exam: Depressed - Skin Skin Exam: Normal Color Assessment and Plan (1) ESRF (end stage renal failure) Assessment & Plan: Stage 3 on HD Status: Acute (2) Pneumonia Assessment & Plan: Multilobar Status: Acute (3) Congestive heart disease Status: Acute (4) Diabetes Assessment & Plan: Uncontrolled Status: Acute
[2018-10-12 16:46] LABS: SQUAMOUS EPITHIAL < 1 /hpf (0-5); URINE BACTERIA OCC (<OCC); URINE BILIRUBIN NEGATIVE (NEGATIVE); URINE BLOOD SMALL (NEGATIVE); URINE CLARITY CLOUDY (Clear); URINE COLOR YELLOW (YELLOW); URINE GLUCOSE (UA) >=500 mg/dL (NEGATIVE); URINE LEUKOCYTE ESTERASE NEG Leu/uL (Negative); URINE PROTEIN >=500 mg/dL (NEGATIVE); URINE UROBILINOGEN 0.2-1.0 mg/dL (0.2-1.0)
[2018-10-12] MEDS ORDERED: Digoxin 500 mcg/2ml (0.5 mg/2ml) Inj IVP ONE ×2 (19:10→19:20)
--- NOTE | 2018-10-12 19:31 | PCM.RRT ---
[employer] Nurse Assessment - Situation [employer] Responder Arrival Time: 18:57 - Constitutional Appears: Non-toxic - Head Head Exam: ATRAUMATIC, NORMAL INSPECTION - Eyes Eye Exam: EOMI - Respiratory Exam Respiratory Exam: Decreased Breath Sounds. absent: Wheezes, Respiratory Distress - Cardiovascular Exam Cardiovascular Exam: Irregular Rhythm - GI/Abdominal Exam GI & Abdominal Exam: Soft. absent: Guarding, Rigid, Tenderness - Neurological Exam Neurological Exam: Alert, Altered, Awake - Extremities Exam Extremities Exam: absent: Calf Tenderness, Joint Swelling, Pedal Edema Plan - Assessment of Findings&Treatment Plan [employer] called by nurse: a fib seen on EKG requested by PMD: Dr. Donald [employer] start time: 655pm [employer] response time: 656pm [employer] end time: 731pm [employer] called on 52 y/o M because of tachycardia during dialysis (rate 125-130's). Patient has a hx of ESRD, CFH (EF 40-45% w severely dilated left atrium), DM, sleep apnea and was admitted for pneumonia. Pt reports chronic sob. Initial [employer] vs: BP-94/57 Temp: 98.7F, spo2: 95% HR-126 bpm Interventions: -EKG showing A fib with RVR at 125 bpm with PVC's -Cardizem 5mg IVP given at 7:07pm; HR remained elevated 130's BP-108/64 -Digoxin .25mg IVP given at 7:11; HR: 125-134bpm -2nd dose of digoxin .25mg IVP given at 7:92-EX-[id number] BP 101/70 -2nd dose of cardizem 5mg @ 722pm; HR- 114 BP-112/71 -Cardiology consulted -Labs: BMP, mag, troponins drawn A/P: 52 y/o M w hx of ESRD, CFH (EF 40-45% w severely dilated left atrium), DM, sleep apnea and was admitted for pneumonia, found to be in a fib. -Following total of 10mg of cardizem, and .5mg of Digoxin HR decreased from 130's to 114-120. -FU cardio consult, and lab -May consider cardizem drip if HR remains consistentl elevated above 130. Patient seen and examined with Dr. Hughes -Gabby Cristobal, PGY1
[2018-10-12 19:38] LABS: CALCIUM 8.6 mg/dL (8.4-10.2); TROPONIN I 0.026 ng/mL (0.00-0.120)
[2018-10-13 08:26] LABS: INR 1.3; PROTHROMBIN TIME 14.4 Seconds (9.8-13.1)
[2018-10-13 08:29] LABS: PARTIAL THROMBOPLASTIN TIME 32.9 Seconds (25.6-37.1)
[2018-10-13] MEDS ORDERED: Digoxin 500 mcg/2ml (0.5 mg/2ml) Inj IVP SCH ×3 (09:00)
--- NOTE | 2018-10-13 09:59 | CP.PCM.PN ---
Subjective - Date & Time of Evaluation Date of Evaluation: 10/13/18 Time of Evaluation: 10:00 - Subjective Subjective: Patient in A fib new onset. Peak expiratory flow less than 25% predicted. Still plethoric, tachycardia Will follow cardiology for anti coagulation and nephrology for HD Objective - Vital Signs/Intake and Output Vital Signs (last 24 hours): Temp Pulse Resp BP Pulse Ox 97.8 F 112 H 20 138/77 94 L 10/13/18 08:29 10/13/18 08:29 10/13/18 08:29 10/13/18 08:29 10/13/18 08:29 - Medications Medications: Current Medications Albuterol/Ipratropium (Duoneb 3 Mg/0.5 Mg (3 Ml) Ud) 3 ml INH RQ6 PRN PRN Reason: Shortness of Breath Last Admin: 10/12/18 15:33 Dose: 3 ml Atorvastatin Calcium (Lipitor) 10 mg PO DAILY [facility] Last Admin: 10/12/18 09:01 Dose: 10 mg Glipizide (Glucotrol Xl) 5 mg PO DAILYWM [facility] Last Admin: 10/12/18 08:53 Dose: 5 mg Home Med (Ferric Citrate [Auryxia]) 3 tab PO TID [facility] Ceftriaxone Sodium 1 gm/ (Sodium Chloride) 100 mls @ 100 mls/hr IVPB DAILY [facility]; Protocol Last Admin: 10/12/18 12:53 Dose: 100 mls/hr Vancomycin HCl 1 gm/ Sodium (Chloride) 250 mls @ 166.667 mls/hr IVPB MWF [facility]; Protocol Insulin Human Regular (Humulin R) 0 units SC ACHS [facility]; Protocol Last Admin: 10/12/18 22:19 Dose: Not Given Labetalol HCl (Trandate) 200 mg PO DAILY [facility] Last Admin: 10/12/18 09:02 Dose: 200 mg Nitroglycerin (Nitrostat Sl Tab) 0.4 mg SL Q5M PRN PRN Reason: Pain, severe (8-10) Last Admin: 10/11/18 01:51 Dose: 0.4 mg Sitagliptin Phosphate (Januvia) 25 mg PO DAILY [facility] Last Admin: 10/12/18 08:54 Dose: 25 mg Vitamin B Complex/Vit C/Folic Acid (Nephro-Cecilia) 1 tab PO DAILY [facility] Last Admin: 10/12/18 09:01 Dose: 1 tab - Labs Labs: 10/12/18 08:45 10/12/18 19:08 PT 14.4 Seconds (9.8-13.1) H 10/13/18 07:55 INR 1.3 10/13/18 07:55 APTT 32.9 Seconds (25.6-37.1) 10/13/18 07:55 - Constitutional Appears: Chronically Ill - Head Exam Head Exam: ATRAUMATIC, NORMAL INSPECTION, NORMOCEPHALIC - Eye Exam Eye Exam: Normal appearance - ENT Exam ENT Exam: Mucous Membranes Moist - Neck Exam Neck Exam: Full ROM - Respiratory Exam Respiratory Exam: Decreased Breath Sounds, Rhonchi - Cardiovascular Exam Cardiovascular Exam: Tachycardia, Irregular Rhythm, +S1, +S2 - Extremities Exam Extremities Exam: Full ROM - Neurological Exam Neurological Exam: Alert, Awake, CN II-XII Intact, Oriented x3 - Psychiatric Exam Psychiatric exam: Flat Affect - Skin Skin Exam: Pallor Assessment and Plan (1) ESRF (end stage renal failure) Status: Acute (2) Pneumonia Status: Acute (3) Congestive heart disease Status: Acute (4) Diabetes Status: Acute
[2018-10-13] MEDS ORDERED: Digoxin 250 mcg (0.25 mg) Tab PO ONE (10:17)
--- NOTE | 2018-10-13 10:17 | CP.PCM.CON ---
History of Present Illness - History of Present Illness History of Present Illness: 52 y/o male with one week of severe coughing. Patient notes he has been unable to sleep and feels fever. Patient with ESRF on HD he is not c/o with HD for one week. Otherwise, patient denies chest pain, nausea and vomiting. CXR: bilateral bibasilar pneumonia Cardiology consult for new onset Atrial fibrillation w/ RVR EKG: atrial fibrillation / RVR Troponin: neg PMH: HTN, Pneumonia (Jun 2018), End Stage Renal Disease, Chronic Kidney Disease, Sleep Apnea right arm AV Fistula Past Patient History - Past Medical History & Family History Past Medical History?: Yes - Past Social History Smoking Status: Never Smoked - CARDIAC Hx Hypertension: Yes - PULMONARY Hx Pneumonia: Yes (Jun 2018) Hx Sleep Apnea: Yes - NEUROLOGICAL Hx Neurological Disorder: No - HEENT Other/Comment: Right eye Floaters, Left eye Diabetic retinopathy - RENAL Hx Chronic Kidney Disease: Yes - ENDOCRINE/METABOLIC Hx Endocrine Disorders: Yes (Diabetes) - HEMATOLOGICAL/ONCOLOGICAL Hx Blood Disorders: No - INTEGUMENTARY Hx Dermatological Problems: No - MUSCULOSKELETAL/RHEUMATOLOGICAL Hx Falls: Yes (10/09/18 Pt. Fell during sleep walking episode.) - GASTROINTESTINAL Hx Gastrointestinal Disorders: No - GENITOURINARY/GYNECOLOGICAL Hx Genitourinary Disorders: No - PSYCHIATRIC Hx Substance Use: No - SURGICAL HISTORY Hx Angiogram: Yes Hx Cardiac Catheterization: Yes () Hx Eye Surgery: Yes (Diabetic retinopathy, Floaters) Other/Comment: Left heart cathertization, Selective coronary angiography, Left ventriculogram, Percutaneous drug-eluting stent implantation in the distal right coronary artery. - ANESTHESIA Hx Anesthesia: Yes Hx Anesthesia Reactions: No Hx Malignant Hyperthermia: No Meds Allergies/Adverse Reactions: Allergies Allergy/AdvReac Type Severity Reaction Status Date / Time No Known Allergies Allergy Verified 10/10/18 09:57 - Medications Medications: Current Medications Albuterol/Ipratropium (Duoneb 3 Mg/0.5 Mg (3 Ml) Ud) 3 ml INH RQ6 PRN PRN Reason: Shortness of Breath Last Admin: 10/12/18 15:33 Dose: 3 ml Atorvastatin Calcium (Lipitor) 10 mg PO DAILY [facility] Last Admin: 10/12/18 09:01 Dose: 10 mg Digoxin (Lanoxin) 0.25 mg PO DAILY [facility] Glipizide (Glucotrol Xl) 5 mg PO DAILYWM [facility] Last Admin: 10/12/18 08:53 Dose: 5 mg Home Med (Ferric Citrate [Auryxia]) 3 tab PO TID [facility] Ceftriaxone Sodium 1 gm/ (Sodium Chloride) 100 mls @ 100 mls/hr IVPB DAILY [facility]; Protocol Last Admin: 10/12/18 12:53 Dose: 100 mls/hr Vancomycin HCl 1 gm/ Sodium (Chloride) 250 mls @ 166.667 mls/hr IVPB MWF [facility]; Protocol Insulin Human Regular (Humulin R) 0 units SC ACHS [facility]; Protocol Last Admin: 10/12/18 22:19 Dose: Not Given Labetalol HCl (Trandate) 200 mg PO DAILY [facility] Last Admin: 10/12/18 09:02 Dose: 200 mg Nitroglycerin (Nitrostat Sl Tab) 0.4 mg SL Q5M PRN PRN Reason: Pain, severe (8-10) Last Admin: 10/11/18 01:51 Dose: 0.4 mg Sitagliptin Phosphate (Januvia) 25 mg PO DAILY [facility] Last Admin: 10/12/18 08:54 Dose: 25 mg Vitamin B Complex/Vit C/Folic Acid (Nephro-Cecilia) 1 tab PO DAILY [facility] Last Admin: 10/12/18 09:01 Dose: 1 tab Results - Vital Signs Recent Vital Signs: Last Vital Signs Temp 97.8 F 10/13/18 08:29 Pulse 112 H 10/13/18 08:29 Resp 20 10/13/18 08:29 BP 138/77 10/13/18 08:29 Pulse Ox 94 L 10/13/18 08:29 - Labs Result Diagrams: 10/12/18 08:45 10/12/18 19:08 Labs: Laboratory Results - last 24 hr 10/12/18 10/12/18 10/12/18 08:45 08:45 11:22 Neutrophils % (Manual) 77 H Lymphocytes % (Manual) 10 L Monocytes % (Manual) 8 Eosinophils % (Manual) 2 Metamyelocytes % 2 H Myelocytes % 1 H Platelet Estimate Normal Large Platelets Present Hypochromasia (manual) Slight Anisocytosis (manual) Slight Tear Drop Cells Slight Ovalocytes Slight PT INR APTT Sodium Potassium Chloride Carbon Dioxide Anion Gap BUN Creatinine Est GFR ( Amer) Est GFR (Non-Af Amer) POC Glucose (mg/dL) 229 H Random Glucose Hemoglobin A1c 8.2 H Calcium Magnesium Troponin I Urine Color Urine Clarity Urine pH Ur Specific [place] Urine Protein Urine Glucose (UA) Urine Ketones Urine Blood Urine Nitrate Urine Bilirubin Urine Urobilinogen Ur Leukocyte Esterase Urine RBC (Auto) Urine Microscopic WBC Ur Squamous Epith Cells Urine Bacteria Ur L.pneumophila Ag 10/12/18 10/12/18 10/12/18 16:15 16:25 16:45 Neutrophils % (Manual) Lymphocytes % (Manual) Monocytes % (Manual) Eosinophils % (Manual) Metamyelocytes % Myelocytes % Platelet Estimate Large Platelets Hypochromasia (manual) Anisocytosis (manual) Tear Drop Cells Ovalocytes PT INR APTT Sodium Potassium Chloride Carbon Dioxide Anion Gap BUN Creatinine Est GFR ( Amer) Est GFR (Non-Af Amer) POC Glucose (mg/dL) 226 H Random Glucose Hemoglobin A1c Calcium Magnesium Troponin I Urine Color Yellow Urine Clarity Cloudy Urine pH 6.0 Ur Specific [place] 1.013 Urine Protein >=500 Urine Glucose (UA) >=500 Urine Ketones Negative Urine Blood Small Urine Nitrate Negative Urine Bilirubin Negative Urine Urobilinogen 0.2-1.0 Ur Leukocyte Esterase Neg Urine RBC (Auto) 1 Urine Microscopic WBC 8 H Ur Squamous Epith Cells < 1 Urine Bacteria Occ H Ur L.pneumophila Ag Negative 10/12/18 10/12/18 10/13/18 19:08 21:51 06:12 Neutrophils % (Manual) Lymphocytes % (Manual) Monocytes % (Manual) Eosinophils % (Manual) Metamyelocytes % Myelocytes % Platelet Estimate Large Platelets Hypochromasia (manual) Anisocytosis (manual) Tear Drop Cells Ovalocytes PT INR APTT Sodium 136 Potassium 4.3 Chloride 97 L Carbon Dioxide 26 Anion Gap 17 BUN 64 H Creatinine 9.2 H* D Est GFR ( Amer) 7 Est GFR (Non-Af Amer) 6 POC Glucose (mg/dL) 195 H 206 H Random Glucose 150 H Hemoglobin A1c Calcium 8.6 Magnesium 2.1 Troponin I 0.0260 Urine Color Urine Clarity Urine pH Ur Specific [place] Urine Protein Urine Glucose (UA) Urine Ketones Urine Blood Urine Nitrate Urine Bilirubin Urine Urobilinogen Ur Leukocyte Esterase Urine RBC (Auto) Urine Microscopic WBC Ur Squamous Epith Cells Urine Bacteria Ur L.pneumophila Ag 10/13/18 07:55 Neutrophils % (Manual) Lymphocytes % (Manual) Monocytes % (Manual) Eosinophils % (Manual) Metamyelocytes % Myelocytes % Platelet Estimate Large Platelets Hypochromasia (manual) Anisocytosis (manual) Tear Drop Cells Ovalocytes PT 14.4 H INR 1.3 APTT 32.9 Sodium Potassium Chloride Carbon Dioxide Anion Gap BUN Creatinine Est GFR ( Amer) Est GFR (Non-Af Amer) POC Glucose (mg/dL) Random Glucose Hemoglobin A1c Calcium Magnesium Troponin I Urine Color Urine Clarity Urine pH Ur Specific [place] Urine Protein Urine Glucose (UA) Urine Ketones Urine Blood Urine Nitrate Urine Bilirubin Urine Urobilinogen Ur Leukocyte Esterase Urine RBC (Auto) Urine Microscopic WBC Ur Squamous Epith Cells Urine Bacteria Ur L.pneumophila Ag Assessment & Plan (1) Atrial fibrillation with RVR Assessment and Plan: Pt's HR is still elevated will place pt on digoxin daily Status: Acute (2) Diabetes Status: Acute (3) ESRF (end stage renal failure) Status: Acute (4) Pneumonia Status: Acute
[2018-10-13] MEDS: Insulin Regular 100 units/ml SC SCH ×4 (10:29→22:31)
[2018-10-13] MEDS: GlipiZIDE 5 mg SR Tab PO SCH (10:29)
[2018-10-13] MEDS: Multivitamin Vitamin B Complex (Nephro-Vite) Tab PO SCH (10:31)
--- NOTE | 2018-10-13 14:18 | CP.PCM.PN ---
Subjective - Date & Time of Evaluation Date of Evaluation: 10/13/18 Time of Evaluation: 08:00 - Subjective Subjective: chart reviewed patient examined ROS performed IV antibiotics renewed Objective - Vital Signs/Intake and Output Vital Signs (last 24 hours): Temp Pulse Resp BP Pulse Ox 97.7 F 117 H 20 113/77 96 10/13/18 12:48 10/13/18 12:48 10/13/18 12:48 10/13/18 12:48 10/13/18 12:48 - Medications Medications: Current Medications Albuterol/Ipratropium (Duoneb 3 Mg/0.5 Mg (3 Ml) Ud) 3 ml INH RQ6 PRN PRN Reason: Shortness of Breath Last Admin: 10/12/18 15:33 Dose: 3 ml Atorvastatin Calcium (Lipitor) 10 mg PO DAILY [facility] Last Admin: 10/13/18 10:30 Dose: 10 mg Digoxin (Lanoxin) 0.25 mg PO DAILY [facility] Glipizide (Glucotrol Xl) 5 mg PO DAILYWM [facility] Last Admin: 10/13/18 10:29 Dose: 5 mg Home Med (Ferric Citrate [Auryxia]) 3 tab PO TID [facility] Ceftriaxone Sodium 1 gm/ (Sodium Chloride) 100 mls @ 100 mls/hr IVPB DAILY [facility]; Protocol Last Admin: 10/13/18 10:31 Dose: 100 mls/hr Vancomycin HCl 1 gm/ Sodium (Chloride) 250 mls @ 166.667 mls/hr IVPB MWF [facility]; Protocol Insulin Human Regular (Humulin R) 0 units SC ACHS [facility]; Protocol Last Admin: 10/13/18 12:23 Dose: 2 units Labetalol HCl (Trandate) 200 mg PO DAILY [facility] Last Admin: 10/13/18 10:32 Dose: 200 mg Nitroglycerin (Nitrostat Sl Tab) 0.4 mg SL Q5M PRN PRN Reason: Pain, severe (8-10) Last Admin: 10/11/18 01:51 Dose: 0.4 mg Sitagliptin Phosphate (Januvia) 25 mg PO DAILY [facility] Last Admin: 10/13/18 10:30 Dose: 25 mg Vitamin B Complex/Vit C/Folic Acid (Nephro-Cecilia) 1 tab PO DAILY [facility] Last Admin: 10/13/18 10:31 Dose: 1 tab - Labs Labs: 10/12/18 08:45 10/12/18 19:08 PT 14.4 Seconds (9.8-13.1) H 10/13/18 07:55 INR 1.3 10/13/18 07:55 APTT 32.9 Seconds (25.6-37.1) 10/13/18 07:55 - Constitutional Appears: Non-toxic, No Acute Distress, Chronically Ill - Head Exam Head Exam: ATRAUMATIC, NORMAL INSPECTION, NORMOCEPHALIC - Eye Exam Eye Exam: EOMI, Normal appearance, PERRL Pupil Exam: NORMAL ACCOMODATION, PERRL - ENT Exam ENT Exam: Mucous Membranes Moist, Normal Exam - Neck Exam Neck Exam: Full ROM, Normal Inspection. absent: Lymphadenopathy - Respiratory Exam Respiratory Exam: Decreased Breath Sounds, Clear to Ausculation Bilateral, P rolonged Expiratory Phase - Cardiovascular Exam Cardiovascular Exam: REGULAR RHYTHM, +S1, +S2. absent: Murmur - GI/Abdominal Exam GI & Abdominal Exam: Soft, Normal Bowel Sounds. absent: Tenderness - Rectal Exam Rectal Exam: Deferred - Exam External exam: Ecchymosis, Erythema, Lacerations, Lesions, NORMAL EXTERNAL EXAM, Swelling - Extremities Exam Extremities Exam: Full ROM, Normal Capillary Refill, Normal Inspection. absent: Joint Swelling, Pedal Edema - Back Exam Back Exam: NORMAL INSPECTION - Neurological Exam Neurological Exam: Alert, Awake, CN II-XII Intact, Normal Gait, Oriented x3 - Psychiatric Exam Psychiatric exam: Normal Affect, Normal Mood - Skin Skin Exam: Dry, Intact, Normal Color, Warm Assessment and Plan (1) Congestive heart disease Status: Acute (2) Diabetes Status: Acute (3) ESRF (end stage renal failure) Status: Acute (4) Pneumonia Status: Acute - Assessment and Plan (Free Text) Assessment: cont IV rx await final cultures
--- NOTE | 2018-10-13 16:39 | CARD ---
APPROVED REPORT Date of service: 10/12/2018 EKG Measurement Heart [id number] <Conclusion> Atrial fibrillation with rapid ventricular response with premature ventricular or aberrantly conducted complexes T wave abnormality, consider lateral ischemia Abnormal ECG
[2018-10-13] MEDS: FERRIC CITRATE PO SCH (18:57)
[2018-10-13] MEDS ORDERED: Digoxin 500 mcg/2ml (0.5 mg/2ml) Inj IVP ONE ×2 (19:10→19:20)
[2018-10-14] MEDS: Insulin Regular 100 units/ml SC SCH ×4 (06:55→21:56)
[2018-10-14] MEDS: GlipiZIDE 5 mg SR Tab PO SCH (08:37)
[2018-10-14] MEDS: Digoxin 250 mcg (0.25 mg) Tab PO SCH (08:37)
[2018-10-14] MEDS: FERRIC CITRATE PO SCH ×3 (08:38→17:04)
[2018-10-14] MEDS: Multivitamin Vitamin B Complex (Nephro-Vite) Tab PO SCH (08:38)
--- NOTE | 2018-10-14 09:57 | CP.PCM.PN ---
Subjective - Date & Time of Evaluation Date of Evaluation: 10/14/18 Time of Evaluation: 09:57 - Subjective Subjective: Still tachycardia a.fib plethoric slowly improving on iv antibx Objective - Vital Signs/Intake and Output Vital Signs (last 24 hours): Temp Pulse Resp BP Pulse Ox 97.3 F L 117 H 20 144/85 95 10/14/18 08:24 10/14/18 08:24 10/14/18 08:24 10/14/18 08:24 10/14/18 08:24 - Medications Medications: Current Medications Albuterol/Ipratropium (Duoneb 3 Mg/0.5 Mg (3 Ml) Ud) 3 ml INH RQ6 PRN PRN Reason: Shortness of Breath Last Admin: 10/12/18 15:33 Dose: 3 ml Atorvastatin Calcium (Lipitor) 10 mg PO DAILY [facility] Last Admin: 10/14/18 08:37 Dose: 10 mg Digoxin (Lanoxin) 0.25 mg PO DAILY [facility] Last Admin: 10/14/18 08:37 Dose: 0.25 mg Glipizide (Glucotrol Xl) 5 mg PO DAILYWM [facility] Last Admin: 10/14/18 08:37 Dose: 5 mg Home Med (Ferric Citrate [Auryxia]) 3 tab PO TIDWM [facility] Last Admin: 10/14/18 08:38 Dose: 3 tab Vancomycin HCl 1 gm/ Sodium (Chloride) 250 mls @ 166.667 mls/hr IVPB MWF [facility]; Protocol Last Admin: 10/14/18 08:39 Dose: 166.667 mls/hr Insulin Human Regular (Humulin R) 0 units SC ACHS [facility]; Protocol Last Admin: 10/14/18 06:55 Dose: 1 units Labetalol HCl (Trandate) 200 mg PO DAILY [facility] Last Admin: 10/14/18 08:38 Dose: 200 mg Nitroglycerin (Nitrostat Sl Tab) 0.4 mg SL Q5M PRN PRN Reason: Pain, severe (8-10) Last Admin: 10/11/18 01:51 Dose: 0.4 mg Sitagliptin Phosphate (Januvia) 25 mg PO DAILY [facility] Last Admin: 10/14/18 08:38 Dose: 25 mg Vitamin B Complex/Vit C/Folic Acid (Nephro-Cecilia) 1 tab PO DAILY [facility] Last Admin: 10/14/18 08:38 Dose: 1 tab - Labs Labs: 10/12/18 08:45 10/12/18 19:08 PT 14.4 Seconds (9.8-13.1) H 10/13/18 07:55 INR 1.3 10/13/18 07:55 APTT 32.9 Seconds (25.6-37.1) 10/13/18 07:55 - Constitutional Appears: Chronically Ill - Head Exam Head Exam: ATRAUMATIC, NORMAL INSPECTION - ENT Exam ENT Exam: Mucous Membranes Moist - Neck Exam Neck Exam: Full ROM - Respiratory Exam Respiratory Exam: Decreased Breath Sounds, Rhonchi - Cardiovascular Exam Cardiovascular Exam: REGULAR RHYTHM, +S1, +S2 - GI/Abdominal Exam GI & Abdominal Exam: Normal Bowel Sounds - Extremities Exam Extremities Exam: Normal Inspection - Neurological Exam Neurological Exam: Alert, Awake, Oriented x3 - Psychiatric Exam Psychiatric exam: Flat Affect - Skin Skin Exam: Pallor Assessment and Plan (1) ESRF (end stage renal failure) Status: Acute (2) Pneumonia Status: Acute (3) Congestive heart disease Status: Acute (4) Diabetes Status: Acute
--- NOTE | 2018-10-14 11:07 | CP.PCM.PN ---
Subjective - Date & Time of Evaluation Date of Evaluation: 10/14/18 Time of Evaluation: 08:00 - Subjective Subjective: alert awake less sob no chest pain or fever Objective - Vital Signs/Intake and Output Vital Signs (last 24 hours): Temp Pulse Resp BP Pulse Ox 97.3 F L 117 H 20 144/85 95 10/14/18 08:24 10/14/18 08:24 10/14/18 08:24 10/14/18 08:24 10/14/18 08:24 - Medications Medications: Current Medications Albuterol/Ipratropium (Duoneb 3 Mg/0.5 Mg (3 Ml) Ud) 3 ml INH RQ6 PRN PRN Reason: Shortness of Breath Last Admin: 10/12/18 15:33 Dose: 3 ml Atorvastatin Calcium (Lipitor) 10 mg PO DAILY [facility] Last Admin: 10/14/18 08:37 Dose: 10 mg Digoxin (Lanoxin) 0.25 mg PO DAILY [facility] Last Admin: 10/14/18 08:37 Dose: 0.25 mg Glipizide (Glucotrol Xl) 5 mg PO DAILYWM [facility] Last Admin: 10/14/18 08:37 Dose: 5 mg Home Med (Ferric Citrate [Auryxia]) 3 tab PO TIDWM [facility] Last Admin: 10/14/18 08:38 Dose: 3 tab Vancomycin HCl 1 gm/ Sodium (Chloride) 250 mls @ 166.667 mls/hr IVPB MWF [facility]; Protocol Last Admin: 10/14/18 08:39 Dose: 166.667 mls/hr Insulin Human Regular (Humulin R) 0 units SC ACHS [facility]; Protocol Last Admin: 10/14/18 06:55 Dose: 1 units Labetalol HCl (Trandate) 200 mg PO DAILY [facility] Last Admin: 10/14/18 08:38 Dose: 200 mg Nitroglycerin (Nitrostat Sl Tab) 0.4 mg SL Q5M PRN PRN Reason: Pain, severe (8-10) Last Admin: 10/11/18 01:51 Dose: 0.4 mg Sitagliptin Phosphate (Januvia) 25 mg PO DAILY [facility] Last Admin: 10/14/18 08:38 Dose: 25 mg Vitamin B Complex/Vit C/Folic Acid (Nephro-Cecilia) 1 tab PO DAILY [facility] Last Admin: 10/14/18 08:38 Dose: 1 tab - Labs Labs: 10/12/18 08:45 10/12/18 19:08 PT 14.4 Seconds (9.8-13.1) H 10/13/18 07:55 INR 1.3 10/13/18 07:55 APTT 32.9 Seconds (25.6-37.1) 10/13/18 07:55 - Constitutional Appears: Non-toxic, Chronically Ill - Head Exam Head Exam: NORMOCEPHALIC - Eye Exam Eye Exam: absent: Scleral icterus Pupil Exam: NORMAL ACCOMODATION - ENT Exam ENT Exam: Mucous Membranes Dry - Neck Exam Neck Exam: absent: Lymphadenopathy - Respiratory Exam Respiratory Exam: Decreased Breath Sounds - Cardiovascular Exam Cardiovascular Exam: REGULAR RHYTHM - GI/Abdominal Exam GI & Abdominal Exam: Distended - Rectal Exam Rectal Exam: Deferred - Exam Exam: NORMAL INSPECTION - Extremities Exam Extremities Exam: absent: Pedal Edema Assessment and Plan (1) Congestive heart disease Status: Acute (2) Diabetes Status: Acute (3) ESRF (end stage renal failure) Status: Acute (4) Pneumonia Status: Acute - Assessment and Plan (Free Text) Assessment: improving slowly all cultures neg possible switch to PO rx upon discharge
--- NOTE | 2018-10-14 12:02 | CP.PCM.PCO ---
Assessment/Plan - Assessment/Plan Assessment: pt. w/ new onset AFIB Anticoagulation for Afib d/w , currently recommends rate control for afib , no anticoagulation at this time per
--- NOTE | 2018-10-14 14:59 | CP.PCM.PN ---
Subjective - Date & Time of Evaluation Date of Evaluation: 10/14/18 Time of Evaluation: 14:55 - Subjective Subjective: RENAL Follow up Note s: seen and examined sob is improved no cp today. pt feels at baseline denies nausea/vomiting VSS gen: nad comfortable no acute distress sclera: anicteric op: clear neck: supple cv: +s1+s2 no rub increased HR with A fib lungs: b/l equal air entry + abd: soft nt nd no organomegaly ext: no edema neuro: A+Ox3 no focal defecit psych: nml affect skin no rash has AVF IMPRESSION esrd on HD via AVF TTS @ [facility], missed HD sys chf/htn/hyperkalemia/pnemonia/anemia/secondary hyperpara/a fib with rvr HD TTS - next hd tomorrow per schedule bp stable abx for PNA per primary team phos at goal as 3.5 Hb stable at 10.6 as last level A fib rate control per cardiology. pt started on digoxin, but consider to avoid use in ESRD due to risk of toxicity. if no other option, then may do 3 times/week dose. Please call if any Qs Objective - Vital Signs/Intake and Output Vital Signs (last 24 hours): Temp Pulse Resp BP Pulse Ox 98.1 F 106 H 20 141/83 95 10/14/18 12:54 10/14/18 12:54 10/14/18 12:54 10/14/18 12:54 10/14/18 12:54 - Medications Medications: Current Medications Albuterol/Ipratropium (Duoneb 3 Mg/0.5 Mg (3 Ml) Ud) 3 ml INH RQ6 PRN PRN Reason: Shortness of Breath Last Admin: 10/12/18 15:33 Dose: 3 ml Atorvastatin Calcium (Lipitor) 10 mg PO DAILY [facility] Last Admin: 10/14/18 08:37 Dose: 10 mg Digoxin (Lanoxin) 0.25 mg PO DAILY [facility] Last Admin: 10/14/18 08:37 Dose: 0.25 mg Glipizide (Glucotrol Xl) 5 mg PO DAILYWM [facility] Last Admin: 10/14/18 08:37 Dose: 5 mg Home Med (Ferric Citrate [Auryxia]) 3 tab PO TIDWM [facility] Last Admin: 10/14/18 12:53 Dose: 3 tab Vancomycin HCl 1 gm/ Sodium (Chloride) 250 mls @ 166.667 mls/hr IVPB MWF [facility]; Protocol Last Admin: 10/14/18 08:39 Dose: 166.667 mls/hr Ceftriaxone Sodium 1 gm/ (Sodium Chloride) 100 mls @ 100 mls/hr IVPB DAILY [facility]; Protocol Insulin Human Regular (Humulin R) 0 units SC ACHS [facility]; Protocol Last Admin: 10/14/18 12:54 Dose: 2 units Labetalol HCl (Trandate) 200 mg PO DAILY [facility] Last Admin: 10/14/18 08:38 Dose: 200 mg Nitroglycerin (Nitrostat Sl Tab) 0.4 mg SL Q5M PRN PRN Reason: Pain, severe (8-10) Last Admin: 10/11/18 01:51 Dose: 0.4 mg Sitagliptin Phosphate (Januvia) 25 mg PO DAILY [facility] Last Admin: 10/14/18 08:38 Dose: 25 mg Vitamin B Complex/Vit C/Folic Acid (Nephro-Cecilia) 1 tab PO DAILY [facility] Last Admin: 10/14/18 08:38 Dose: 1 tab - Labs Labs: 10/12/18 08:45 10/12/18 19:08 PT 14.4 Seconds (9.8-13.1) H 10/13/18 07:55 INR 1.3 10/13/18 07:55 APTT 32.9 Seconds (25.6-37.1) 10/13/18 07:55
[2018-10-15] MEDS ORDERED: Labetalol 5mg/ml (4ml) IVP STA (05:23)
[2018-10-15] MEDS: Insulin Regular 100 units/ml SC SCH ×4 (06:34→22:23)
[2018-10-15] MEDS: GlipiZIDE 5 mg SR Tab PO SCH (08:35)
[2018-10-15] MEDS: FERRIC CITRATE PO SCH ×3 (08:35→18:06)
[2018-10-15] MEDS: Digoxin 250 mcg (0.25 mg) Tab PO SCH (08:36)
[2018-10-15] MEDS: Multivitamin Vitamin B Complex (Nephro-Vite) Tab PO SCH (08:37)
--- NOTE | 2018-10-15 09:33 | CP.PCM.PN ---
Subjective - Date & Time of Evaluation Date of Evaluation: 10/15/18 Time of Evaluation: 09:34 - Subjective Subjective: Patient improving . He was cleared by ophthalmology for anti coagulation, discussed with renal start Coumadin low dose will follow close. Objective - Vital Signs/Intake and Output Vital Signs (last 24 hours): Temp Pulse Resp BP Pulse Ox 97.5 F L 85 20 156/87 H 94 L 10/15/18 07:47 10/15/18 07:47 10/15/18 07:47 10/15/18 07:47 10/15/18 07:47 - Medications Medications: Current Medications Albuterol/Ipratropium (Duoneb 3 Mg/0.5 Mg (3 Ml) Ud) 3 ml INH RQ6 PRN PRN Reason: Shortness of Breath Last Admin: 10/12/18 15:33 Dose: 3 ml Atorvastatin Calcium (Lipitor) 10 mg PO DAILY [facility] Last Admin: 10/15/18 08:36 Dose: 10 mg Digoxin (Lanoxin) 0.25 mg PO DAILY [facility] Last Admin: 10/15/18 08:36 Dose: 0.25 mg Glipizide (Glucotrol Xl) 5 mg PO DAILYWM [facility] Last Admin: 10/15/18 08:35 Dose: 5 mg Home Med (Ferric Citrate [Auryxia]) 3 tab PO TIDWM [facility] Last Admin: 10/15/18 08:35 Dose: 3 tab Vancomycin HCl 1 gm/ Sodium (Chloride) 250 mls @ 166.667 mls/hr IVPB MWF [facility]; Protocol Last Admin: 10/14/18 08:39 Dose: 166.667 mls/hr Ceftriaxone Sodium 1 gm/ (Sodium Chloride) 100 mls @ 100 mls/hr IVPB DAILY [facility]; Protocol Last Admin: 10/15/18 08:39 Dose: 100 mls/hr Insulin Human Regular (Humulin R) 0 units SC ACHS [facility]; Protocol Last Admin: 10/15/18 06:34 Dose: 1 units Labetalol HCl (Trandate) 200 mg PO DAILY [facility] Last Admin: 10/15/18 08:37 Dose: 200 mg Nitroglycerin (Nitrostat Sl Tab) 0.4 mg SL Q5M PRN PRN Reason: Pain, severe (8-10) Last Admin: 10/11/18 01:51 Dose: 0.4 mg Sitagliptin Phosphate (Januvia) 25 mg PO DAILY [facility] Last Admin: 10/15/18 08:36 Dose: 25 mg Vitamin B Complex/Vit C/Folic Acid (Nephro-Cecilia) 1 tab PO DAILY [facility] Last Admin: 10/15/18 08:37 Dose: 1 tab - Labs Labs: 10/12/18 08:45 10/12/18 19:08 PT 14.4 Seconds (9.8-13.1) H 10/13/18 07:55 INR 1.3 10/13/18 07:55 APTT 32.9 Seconds (25.6-37.1) 10/13/18 07:55 - Constitutional Appears: Chronically Ill - Head Exam Head Exam: ATRAUMATIC, NORMAL INSPECTION, NORMOCEPHALIC - Eye Exam Eye Exam: Normal appearance - ENT Exam ENT Exam: Mucous Membranes Moist - Neck Exam Neck Exam: Full ROM - Respiratory Exam Respiratory Exam: Decreased Breath Sounds - Cardiovascular Exam Cardiovascular Exam: REGULAR RHYTHM, +S1, +S2 - GI/Abdominal Exam GI & Abdominal Exam: Normal Bowel Sounds - Extremities Exam Extremities Exam: Normal Inspection - Neurological Exam Neurological Exam: Alert, Awake, CN II-XII Intact, Oriented x3 - Psychiatric Exam Psychiatric exam: Flat Affect - Skin Skin Exam: Normal Color Assessment and Plan (1) ESRF (end stage renal failure) Status: Acute (2) Pneumonia Status: Acute (3) Congestive heart disease Status: Acute (4) Diabetes Status: Acute
[2018-10-15 12:22] LABS: INR 1.2; PROTHROMBIN TIME 13.4 Seconds (9.8-13.1)
--- NOTE | 2018-10-15 21:09 | CP.PCM.PN ---
Subjective - Date & Time of Evaluation Date of Evaluation: 10/15/18 Time of Evaluation: 21:07 - Subjective Subjective: RENAL Follow up Note s: seen and examined sob is improved no cp today. pt feels at baseline denies nausea/vomiting VSS gen: nad comfortable no acute distress sclera: anicteric op: clear neck: supple cv: +s1+s2 no rub increased HR with A fib lungs: b/l equal air entry + abd: soft nt nd no organomegaly ext: no edema neuro: A+Ox3 no focal defecit psych: nml affect skin no rash has AVF IMPRESSION esrd on HD via AVF TTS @ [facility], missed HD sys chf/htn/hyperkalemia/pnemonia/anemia/secondary hyperpara/a fib with rvr HD TTS continue per schedule bp stable abx for PNA per primary team phos at goal as 3.5 Hb stable at 10.6 as last level A fib rate control per cardiology. pt on digoxin Objective - Vital Signs/Intake and Output Vital Signs (last 24 hours): Temp Pulse Resp BP Pulse Ox 98.3 F 89 18 161/87 H 95 10/15/18 20:06 10/15/18 20:06 10/15/18 20:06 10/15/18 20:06 10/15/18 20:06 - Medications Medications: Current Medications Albuterol/Ipratropium (Duoneb 3 Mg/0.5 Mg (3 Ml) Ud) 3 ml INH RQ6 PRN PRN Reason: Shortness of Breath Last Admin: 10/12/18 15:33 Dose: 3 ml Atorvastatin Calcium (Lipitor) 10 mg PO DAILY [facility] Last Admin: 10/15/18 08:36 Dose: 10 mg Digoxin (Lanoxin) 0.25 mg PO DAILY [facility] Last Admin: 10/15/18 08:36 Dose: 0.25 mg Glipizide (Glucotrol Xl) 5 mg PO DAILYWM [facility] Last Admin: 10/15/18 08:35 Dose: 5 mg Home Med (Ferric Citrate [Auryxia]) 3 tab PO TIDWM [facility] Last Admin: 10/15/18 18:06 Dose: 3 tab Vancomycin HCl 1 gm/ Sodium (Chloride) 250 mls @ 166.667 mls/hr IVPB MWF [facility]; Protocol Last Admin: 10/14/18 08:39 Dose: 166.667 mls/hr Ceftriaxone Sodium 1 gm/ (Sodium Chloride) 100 mls @ 100 mls/hr IVPB DAILY [facility]; Protocol Last Admin: 10/15/18 08:39 Dose: 100 mls/hr Insulin Human Regular (Humulin R) 0 units SC ACHS [facility]; Protocol Last Admin: 10/15/18 18:07 Dose: 1 units Labetalol HCl (Trandate) 200 mg PO DAILY [facility] Last Admin: 10/15/18 08:37 Dose: 200 mg Nitroglycerin (Nitrostat Sl Tab) 0.4 mg SL Q5M PRN PRN Reason: Pain, severe (8-10) Last Admin: 10/11/18 01:51 Dose: 0.4 mg Sitagliptin Phosphate (Januvia) 25 mg PO DAILY [facility] Last Admin: 10/15/18 08:36 Dose: 25 mg Vitamin B Complex/Vit C/Folic Acid (Nephro-Cecilia) 1 tab PO DAILY [facility] Last Admin: 10/15/18 08:37 Dose: 1 tab - Labs Labs: 10/12/18 08:45 10/12/18 19:08 PT 13.4 Seconds (9.8-13.1) H 10/15/18 11:50 INR 1.2 10/15/18 11:50 APTT 32.9 Seconds (25.6-37.1) 10/13/18 07:55
[2018-10-16 06:04] LABS: INR 1.3; PROTHROMBIN TIME 14.2 Seconds (9.8-13.1)
[2018-10-16] MEDS: Insulin Regular 100 units/ml SC SCH ×4 (06:32→22:03)
--- NOTE | 2018-10-16 08:21 | CON ---
DATE: 10/15/2018 HISTORY OF PRESENT ILLNESS: Mr. Graham is a 59-year-old male who was admitted to the [facility] for atrial fibrillation. I was called in a consultation for an eye consult. Visual acuity was 20/80 in the right eye, 20/30 in the left eye. The patient states that he has had multiple laser treatments in both eyes for diabetic retinopathy. On physical exam, his right eye showed extensive laser scarring with macular edema. Left eye also showed scarring and a small vitreous hemorrhage in the right eye. Corneal exam is normal. Lens exam showed nuclear sclerosis in both eyes. ASSESSMENT: My assessment is that Mr. Graham has diabetic retinopathy which is chronic. I do not feel there is any contraindication to bring treatment at this time if it is medically indicated, but they should call Dr. Dodge, his hub bander in [facility]. Ant Cole MD
[2018-10-16] MEDS: GlipiZIDE 5 mg SR Tab PO SCH (09:26)
[2018-10-16] MEDS: FERRIC CITRATE PO SCH ×3 (09:26→18:08)
[2018-10-16] MEDS: Digoxin 250 mcg (0.25 mg) Tab PO SCH (09:27)
[2018-10-16] MEDS: Multivitamin Vitamin B Complex (Nephro-Vite) Tab PO SCH (09:28)
[2018-10-16 09:30] VITALS: PULSE 114
--- NOTE | 2018-10-16 11:29 | CP.PCM.PN ---
Subjective - Date & Time of Evaluation Date of Evaluation: 10/16/18 Time of Evaluation: 09:00 - Subjective Subjective: awake alert afebrile'in nad denies fever Objective - Vital Signs/Intake and Output Vital Signs (last 24 hours): Temp Pulse Resp BP Pulse Ox 97.7 F 112 H 18 128/74 97 10/16/18 08:12 10/16/18 08:12 10/16/18 08:12 10/16/18 08:12 10/16/18 08:12 - Medications Medications: Current Medications Albuterol/Ipratropium (Duoneb 3 Mg/0.5 Mg (3 Ml) Ud) 3 ml INH RQ6 PRN PRN Reason: Shortness of Breath Last Admin: 10/12/18 15:33 Dose: 3 ml Atorvastatin Calcium (Lipitor) 10 mg PO DAILY [facility] Last Admin: 10/16/18 09:28 Dose: 10 mg Digoxin (Lanoxin) 0.25 mg PO DAILY [facility] Last Admin: 10/16/18 09:27 Dose: 0.25 mg Glipizide (Glucotrol Xl) 5 mg PO DAILYWM [facility] Last Admin: 10/16/18 09:26 Dose: 5 mg Home Med (Ferric Citrate [Auryxia]) 3 tab PO TIDWM [facility] Last Admin: 10/16/18 09:26 Dose: Not Given Vancomycin HCl 1 gm/ Sodium (Chloride) 250 mls @ 166.667 mls/hr IVPB MWF [facility]; Protocol Last Admin: 10/16/18 11:07 Dose: 166.667 mls/hr Ceftriaxone Sodium 1 gm/ (Sodium Chloride) 100 mls @ 100 mls/hr IVPB DAILY [facility]; Protocol Last Admin: 10/16/18 09:29 Dose: 100 mls/hr Insulin Human Regular (Humulin R) 0 units SC ACHS [facility]; Protocol Last Admin: 10/16/18 06:32 Dose: Not Given Labetalol HCl (Trandate) 200 mg PO DAILY [facility] Last Admin: 10/16/18 09:28 Dose: 200 mg Nitroglycerin (Nitrostat Sl Tab) 0.4 mg SL Q5M PRN PRN Reason: Pain, severe (8-10) Last Admin: 10/11/18 01:51 Dose: 0.4 mg Sitagliptin Phosphate (Januvia) 25 mg PO DAILY [facility] Last Admin: 10/16/18 09:27 Dose: 25 mg Vitamin B Complex/Vit C/Folic Acid (Nephro-Cecilia) 1 tab PO DAILY [facility] Last Admin: 10/16/18 09:28 Dose: 1 tab Warfarin Sodium (Coumadin) 4 mg PO QD5 [facility]; Protocol Stop: 10/16/18 17:01 - Labs Labs: 10/12/18 08:45 10/12/18 19:08 PT 14.2 Seconds (9.8-13.1) H 10/16/18 05:40 INR 1.3 10/16/18 05:40 APTT 32.9 Seconds (25.6-37.1) 10/13/18 07:55 - Constitutional Appears: Non-toxic, Chronically Ill - Head Exam Head Exam: ATRAUMATIC, NORMAL INSPECTION, NORMOCEPHALIC - Eye Exam Eye Exam: EOMI, Normal appearance, PERRL Pupil Exam: NORMAL ACCOMODATION, PERRL - ENT Exam ENT Exam: Mucous Membranes Moist, Normal Exam - Neck Exam Neck Exam: Full ROM, Normal Inspection. absent: Lymphadenopathy - Respiratory Exam Respiratory Exam: Decreased Breath Sounds, Clear to Ausculation Bilateral, Prolonged Expiratory Phase - Cardiovascular Exam Cardiovascular Exam: REGULAR RHYTHM, +S1, +S2. absent: Murmur - GI/Abdominal Exam GI & Abdominal Exam: Soft, Normal Bowel Sounds. absent: Tenderness - Rectal Exam Rectal Exam: Deferred - Exam Exam: NORMAL INSPECTION - Extremities Exam Extremities Exam: Full ROM, Normal Capillary Refill, Normal Inspection. absent: Joint Swelling, Pedal Edema - Back Exam Back Exam: NORMAL INSPECTION - Neurological Exam Neurological Exam: Alert, Awake, CN II-XII Intact, Normal Gait, Oriented x3 - Psychiatric Exam Psychiatric exam: Normal Affect, Normal Mood - Skin Skin Exam: Dry, Intact, Normal Color, Warm Assessment and Plan (1) Congestive heart disease Status: Acute (2) Diabetes Status: Acute (3) ESRF (end stage renal failure) Status: Acute (4) Pneumonia Status: Acute - Assessment and Plan (Free Text) Assessment: doing well cultures neg thus far possible d/c on PO rx
[2018-10-16 11:33] LABS: INR 1.2; PROTHROMBIN TIME 13.7 Seconds (9.8-13.1)
[2018-10-16 11:35] LABS: PARTIAL THROMBOPLASTIN TIME 35.3 Seconds (25.6-37.1)
--- NOTE | 2018-10-16 11:52 | CP.PCM.PN ---
Subjective - Date & Time of Evaluation Date of Evaluation: 10/16/18 Time of Evaluation: 11:52 - Subjective Subjective: Patient in bed awake and conscious not in acute distress. Vital signs noted to be stable. Appetite is okay no nausea no vomiting Objective - Vital Signs/Intake and Output Vital Signs (last 24 hours): Temp Pulse Resp BP Pulse Ox 97.7 F 112 H 18 128/74 97 10/16/18 08:12 10/16/18 08:12 10/16/18 08:12 10/16/18 08:12 10/16/18 08:12 - Medications Medications: Current Medications Albuterol/Ipratropium (Duoneb 3 Mg/0.5 Mg (3 Ml) Ud) 3 ml INH RQ6 PRN PRN Reason: Shortness of Breath Last Admin: 10/12/18 15:33 Dose: 3 ml Atorvastatin Calcium (Lipitor) 10 mg PO DAILY [facility] Last Admin: 10/16/18 09:28 Dose: 10 mg Digoxin (Lanoxin) 0.25 mg PO DAILY [facility] Last Admin: 10/16/18 09:27 Dose: 0.25 mg Glipizide (Glucotrol Xl) 5 mg PO DAILYWM [facility] Last Admin: 10/16/18 09:26 Dose: 5 mg Home Med (Ferric Citrate [Auryxia]) 3 tab PO TIDWM [facility] Last Admin: 10/16/18 09:26 Dose: Not Given Vancomycin HCl 1 gm/ Sodium (Chloride) 250 mls @ 166.667 mls/hr IVPB MWF [facility]; Protocol Last Admin: 10/16/18 11:07 Dose: 166.667 mls/hr Ceftriaxone Sodium 1 gm/ (Sodium Chloride) 100 mls @ 100 mls/hr IVPB DAILY [facility]; Protocol Last Admin: 10/16/18 09:29 Dose: 100 mls/hr Insulin Human Regular (Humulin R) 0 units SC ACHS [facility]; Protocol Last Admin: 10/16/18 06:32 Dose: Not Given Labetalol HCl (Trandate) 200 mg PO DAILY [facility] Last Admin: 10/16/18 09:28 Dose: 200 mg Nitroglycerin (Nitrostat Sl Tab) 0.4 mg SL Q5M PRN PRN Reason: Pain, severe (8-10) Last Admin: 10/11/18 01:51 Dose: 0.4 mg Sitagliptin Phosphate (Januvia) 25 mg PO DAILY [facility] Last Admin: 10/16/18 09:27 Dose: 25 mg Vitamin B Complex/Vit C/Folic Acid (Nephro-Cecilia) 1 tab PO DAILY [facility] Last Admin: 10/16/18 09:28 Dose: 1 tab Warfarin Sodium (Coumadin) 4 mg PO QD5 [facility]; Protocol Stop: 10/16/18 17:01 - Labs Labs: 10/12/18 08:45 10/12/18 19:08 PT 13.7 Seconds (9.8-13.1) H 10/16/18 11:08 INR 1.2 10/16/18 11:08 APTT 35.3 Seconds (25.6-37.1) 10/16/18 11:08 - Constitutional Appears: No Acute Distress - Eye Exam Eye Exam: Conjunctival injection - ENT Exam ENT Exam: Mucous Membranes Moist - Neck Exam Neck Exam: absent: Lymphadenopathy - Respiratory Exam Respiratory Exam: Rhonchi, NORMAL BREATHING PATTERN. absent: Chest Wall Tenderness - Cardiovascular Exam Cardiovascular Exam: Irregular Rhythm. absent: Gallop, JVD, Rubs - GI/Abdominal Exam GI & Abdominal Exam: Soft, Normal Bowel Sounds - Extremities Exam Extremities Exam: absent: Calf Tenderness - Back Exam Back Exam: absent: CVA tenderness (L), CVA tenderness (R) - Neurological Exam Neurological Exam: Alert - Skin Skin Exam: absent: Cyanosis Assessment and Plan (1) Atrial fibrillation with RVR Status: Acute (2) Congestive heart disease Status: Acute (3) Diabetes Status: Acute (4) ESRF (end stage renal failure) Assessment & Plan: IMPRESSION [place]rd on HD via [place] [facility] [facility] [place]/hyperkalemia/pnemonia/anemia/secondary hyperpara/a fib with rvr Plan HD TTS - next hd tomorrow per schedule bp stable abx per primary team phos at goal as 3.5 Patient seems to be stable continue monitoring. Discussed with the primary care physician for Coumadin treatment as recommended per cardiology and primary team for chronic atrial fibrillation Status: Acute (5) Pneumonia Status: Acute
--- NOTE | 2018-10-16 12:00 | CP.PCM.PN ---
Subjective - Date & Time of Evaluation Date of Evaluation: 10/16/18 Time of Evaluation: 12:00 - Subjective Subjective: Still in a.fib with RVR but improving. INR not therapeutic. Plethoric. Continue present rx Objective - Vital Signs/Intake and Output Vital Signs (last 24 hours): Temp Pulse Resp BP Pulse Ox 98.1 F 90 18 118/73 96 10/16/18 11:54 10/16/18 11:54 10/16/18 11:54 10/16/18 11:54 10/16/18 11:54 - Medications Medications: Current Medications Albuterol/Ipratropium (Duoneb 3 Mg/0.5 Mg (3 Ml) Ud) 3 ml INH RQ6 PRN PRN Reason: Shortness of Breath Last Admin: 10/12/18 15:33 Dose: 3 ml Atorvastatin Calcium (Lipitor) 10 mg PO DAILY [facility] Last Admin: 10/16/18 09:28 Dose: 10 mg Digoxin (Lanoxin) 0.25 mg PO DAILY [facility] Last Admin: 10/16/18 09:27 Dose: 0.25 mg Glipizide (Glucotrol Xl) 5 mg PO DAILYWM [facility] Last Admin: 10/16/18 09:26 Dose: 5 mg Home Med (Ferric Citrate [Auryxia]) 3 tab PO TIDWM [facility] Last Admin: 10/16/18 09:26 Dose: Not Given Vancomycin HCl 1 gm/ Sodium (Chloride) 250 mls @ 166.667 mls/hr IVPB MWF [facility]; Protocol Last Admin: 10/16/18 11:07 Dose: 166.667 mls/hr Ceftriaxone Sodium 1 gm/ (Sodium Chloride) 100 mls @ 100 mls/hr IVPB DAILY [facility]; Protocol Last Admin: 10/16/18 09:29 Dose: 100 mls/hr Insulin Human Regular (Humulin R) 0 units SC ACHS [facility]; Protocol Last Admin: 10/16/18 06:32 Dose: Not Given Labetalol HCl (Trandate) 200 mg PO DAILY [facility] Last Admin: 10/16/18 09:28 Dose: 200 mg Nitroglycerin (Nitrostat Sl Tab) 0.4 mg SL Q5M PRN PRN Reason: Pain, severe (8-10) Last Admin: 10/11/18 01:51 Dose: 0.4 mg Sitagliptin Phosphate (Januvia) 25 mg PO DAILY [facility] Last Admin: 10/16/18 09:27 Dose: 25 mg Vitamin B Complex/Vit C/Folic Acid (Nephro-Cecilia) 1 tab PO DAILY [facility] Last Admin: 10/16/18 09:28 Dose: 1 tab Warfarin Sodium (Coumadin) 4 mg PO QD5 [facility]; Protocol Stop: 10/16/18 17:01 - Labs Labs: 10/12/18 08:45 10/12/18 19:08 PT 13.7 Seconds (9.8-13.1) H 10/16/18 11:08 INR 1.2 10/16/18 11:08 APTT 35.3 Seconds (25.6-37.1) 10/16/18 11:08 - Constitutional Appears: Chronically Ill - Head Exam Head Exam: ATRAUMATIC, NORMAL INSPECTION, NORMOCEPHALIC - Eye Exam Eye Exam: Normal appearance - Neck Exam Neck Exam: Full ROM - Respiratory Exam Respiratory Exam: Decreased Breath Sounds, Rhonchi - Cardiovascular Exam Cardiovascular Exam: Tachycardia, Irregular Rhythm, +S1, +S2 - GI/Abdominal Exam GI & Abdominal Exam: Normal Bowel Sounds - Neurological Exam Neurological Exam: Alert, Awake, CN II-XII Intact - Psychiatric Exam Psychiatric exam: Flat Affect - Skin Skin Exam: Pallor Assessment and Plan (1) ESRF (end stage renal failure) Status: Acute (2) Pneumonia Status: Acute (3) Congestive heart disease Status: Acute (4) Diabetes Status: Acute
[2018-10-16] MEDS: Enoxaparin 120 mg Syringe SC SCH (17:37)
[2018-10-17 06:09] LABS: INR 1.2; PROTHROMBIN TIME 14.1 Seconds (9.8-13.1)
[2018-10-17] MEDS: Insulin Regular 100 units/ml SC SCH ×4 (06:33→21:42)
[2018-10-17 07:07] LABS: HEMOGLOBIN 9.7 g/dL (12.0-18.0); MEAN CELL VOLUME 92.7 fl (80.0-94.0); MEAN CORPUSCULAR HEMOGLOBIN 30.3 pg (27.0-31.0); MEAN CORPUSCULAR HGB CONC 32.7 g/dL (33.0-37.0); RBC 3.19 Mil/uL (4.40-5.90); RED CELL DISTRIBUTION WIDTH 14.9 % (11.5-14.5); WHITE BLOOD COUNT 5.8 K/uL (4.8-10.8)
[2018-10-17 07:34] LABS: CALCIUM 8.6 mg/dL (8.4-10.2)
[2018-10-17] MEDS: Enoxaparin 120 mg Syringe SC SCH (08:32)
[2018-10-17] MEDS: GlipiZIDE 5 mg SR Tab PO SCH (08:33)
[2018-10-17] MEDS: Multivitamin Vitamin B Complex (Nephro-Vite) Tab PO SCH (08:33)
[2018-10-17] MEDS: FERRIC CITRATE PO SCH ×3 (08:35→16:35)
--- NOTE | 2018-10-17 10:11 | CP.PCM.PN ---
Subjective - Date & Time of Evaluation Date of Evaluation: 10/17/18 Time of Evaluation: 10:00 - Subjective Subjective: Dialysis note He was seen on hemodialysis Awake and conscious comfortable Vital signs noted to be stable Pulse rate noted to be in the range of 115 although patient stated that always his heart rate in that range during dialysis ? Patient feeling much better Objective - Vital Signs/Intake and Output Vital Signs (last 24 hours): Temp Pulse Resp BP Pulse Ox 97.8 F 84 18 153/88 H 95 10/17/18 08:01 10/17/18 08:01 10/17/18 08:01 10/17/18 08:01 10/17/18 08:01 - Medications Medications: Current Medications Albuterol/Ipratropium (Duoneb 3 Mg/0.5 Mg (3 Ml) Ud) 3 ml INH RQ6 PRN PRN Reason: Shortness of Breath Last Admin: 10/12/18 15:33 Dose: 3 ml Atorvastatin Calcium (Lipitor) 10 mg PO DAILY [facility] Last Admin: 10/17/18 08:32 Dose: 10 mg Enoxaparin Sodium (Lovenox) 110 mg SC DAILY [facility]; Protocol Last Admin: 10/17/18 08:32 Dose: 110 mg Glipizide (Glucotrol Xl) 5 mg PO DAILYWM [facility] Last Admin: 10/17/18 08:33 Dose: 5 mg Home Med (Ferric Citrate [Auryxia]) 3 tab PO TIDWM [facility] Last Admin: 10/17/18 08:35 Dose: 3 tab Vancomycin HCl 1 gm/ Sodium (Chloride) 250 mls @ 166.667 mls/hr IVPB MWF [facility]; Protocol Last Admin: 10/16/18 11:07 Dose: 166.667 mls/hr Ceftriaxone Sodium 1 gm/ (Sodium Chloride) 100 mls @ 100 mls/hr IVPB DAILY [facility]; Protocol Last Admin: 10/17/18 08:36 Dose: 100 mls/hr Insulin Human Regular (Humulin R) 0 units SC ACHS [facility]; Protocol Last Admin: 10/17/18 06:33 Dose: Not Given Labetalol HCl (Trandate) 200 mg PO DAILY [facility] Last Admin: 10/17/18 08:35 Dose: Not Given Labetalol HCl (Trandate) 200 mg PO BID [facility] Last Admin: 10/17/18 08:40 Dose: Not Given Nitroglycerin (Nitrostat Sl Tab) 0.4 mg SL Q5M PRN PRN Reason: Pain, severe (8-10) Last Admin: 10/11/18 01:51 Dose: 0.4 mg Sitagliptin Phosphate (Januvia) 25 mg PO DAILY [facility] Last Admin: 10/17/18 08:35 Dose: 25 mg Vitamin B Complex/Vit C/Folic Acid (Nephro-Cecilia) 1 tab PO DAILY [facility] Last Admin: 10/17/18 08:33 Dose: 1 tab Warfarin Sodium (Coumadin) 10 mg PO QD5 [facility]; Protocol Stop: 10/17/18 17:01 - Labs Labs: 10/17/18 07:04 10/17/18 07:04 PT 14.1 Seconds (9.8-13.1) H 10/17/18 05:40 INR 1.2 10/17/18 05:40 APTT 35.3 Seconds (25.6-37.1) 10/16/18 11:08 - Constitutional Appears: No Acute Distress - Eye Exam Eye Exam: Conjunctival injection - ENT Exam ENT Exam: Mucous Membranes Moist - Neck Exam Neck Exam: absent: Lymphadenopathy - Respiratory Exam Respiratory Exam: Rhonchi, NORMAL BREATHING PATTERN. absent: Chest Wall Tender ness - Cardiovascular Exam Cardiovascular Exam: Irregular Rhythm. absent: Gallop, JVD, Rubs - GI/Abdominal Exam GI & Abdominal Exam: Soft, Normal Bowel Sounds - Extremities Exam Extremities Exam: absent: Calf Tenderness - Back Exam Back Exam: absent: CVA tenderness (L), CVA tenderness (R) - Neurological Exam Neurological Exam: Alert - Psychiatric Exam Psychiatric exam: Normal Affect - Skin Skin Exam: absent: Cyanosis Assessment and Plan (1) Atrial fibrillation with RVR Status: Acute (2) Congestive heart disease Status: Acute (3) Diabetes Status: Acute (4) ESRF (end stage renal failure) Assessment & Plan: esrd on HD via [facility] [facility] [place]/htn/hyperkalemia/pnemonia/anemia/secondary hyperpara/a fib Plan He was seen on hemodialysis I discussed ordered with the dialysis nurse at the bedside. With ultrafiltration 3500 cc as the patient requested and insisted The sister at the bedside and explained to the patient and the family . Continue phosphorus binders Antibiotics as per GFR Management of the cardiac condition as per primary team and the cardiology Status: Acute (5) Pneumonia Status: Acute
--- NOTE | 2018-10-17 13:11 | CP.PCM.PN ---
Subjective - Date & Time of Evaluation Date of Evaluation: 10/17/18 Time of Evaluation: 13:12 - Subjective Subjective: Patient still in a. fib tachy. dc dig, can be problematic to control levels with ESRF. Will adjust beta anam to optimize HR, still PT /INR not therapeutic, continue heparin. Patient weak, debilitated. Objective - Vital Signs/Intake and Output Vital Signs (last 24 hours): Temp Pulse Resp BP Pulse Ox 98.1 F 117 H 18 148/88 95 10/17/18 12:03 10/17/18 12:03 10/17/18 12:03 10/17/18 12:03 10/17/18 12:03 - Medications Medications: Current Medications Albuterol/Ipratropium (Duoneb 3 Mg/0.5 Mg (3 Ml) Ud) 3 ml INH RQ6 PRN PRN Reason: Shortness of Breath Last Admin: 10/12/18 15:33 Dose: 3 ml Atorvastatin Calcium (Lipitor) 10 mg PO DAILY [facility] Last Admin: 10/17/18 08:32 Dose: 10 mg Enoxaparin Sodium (Lovenox) 110 mg SC DAILY [facility]; Protocol Last Admin: 10/17/18 08:32 Dose: 110 mg Glipizide (Glucotrol Xl) 5 mg PO DAILYWM [facility] Last Admin: 10/17/18 08:33 Dose: 5 mg Home Med (Ferric Citrate [Auryxia]) 3 tab PO TIDWM [facility] Last Admin: 10/17/18 08:35 Dose: 3 tab Vancomycin HCl 1 gm/ Sodium (Chloride) 250 mls @ 166.667 mls/hr IVPB MWF [facility]; Protocol Last Admin: 10/16/18 11:07 Dose: 166.667 mls/hr Ceftriaxone Sodium 1 gm/ (Sodium Chloride) 100 mls @ 100 mls/hr IVPB DAILY [facility]; Protocol Last Admin: 10/17/18 08:36 Dose: 100 mls/hr Insulin Human Regular (Humulin R) 0 units SC ACHS [facility]; Protocol Last Admin: 10/17/18 06:33 Dose: Not Given Labetalol HCl (Trandate) 200 mg PO DAILY [facility] Last Admin: 10/17/18 08:35 Dose: Not Given Labetalol HCl (Trandate) 200 mg PO BID [facility] Last Admin: 10/17/18 08:40 Dose: Not Given Nitroglycerin (Nitrostat Sl Tab) 0.4 mg SL Q5M PRN PRN Reason: Pain, severe (8-10) Last Admin: 10/11/18 01:51 Dose: 0.4 mg Sitagliptin Phosphate (Januvia) 25 mg PO DAILY [facility] Last Admin: 10/17/18 08:35 Dose: 25 mg Vitamin B Complex/Vit C/Folic Acid (Nephro-Cecilia) 1 tab PO DAILY [facility] Last Admin: 10/17/18 08:33 Dose: 1 tab Warfarin Sodium (Coumadin) 10 mg PO QD5 [facility]; Protocol Stop: 10/17/18 17:01 - Labs Labs: 10/17/18 07:04 10/17/18 07:04 PT 14.1 Seconds (9.8-13.1) H 10/17/18 05:40 INR 1.2 10/17/18 05:40 APTT 35.3 Seconds (25.6-37.1) 10/16/18 11:08 - Constitutional Appears: Chronically Ill - Head Exam Head Exam: ATRAUMATIC, NORMAL INSPECTION, NORMOCEPHALIC - Eye Exam Eye Exam: Normal appearance - ENT Exam ENT Exam: Normal Exam - Neck Exam Neck Exam: Full ROM - Respiratory Exam Respiratory Exam: Decreased Breath Sounds - Cardiovascular Exam Cardiovascular Exam: Tachycardia, Irregular Rhythm, +S1, +S2 - GI/Abdominal Exam GI & Abdominal Exam: Normal Bowel Sounds - Extremities Exam Extremities Exam: Pedal Edema - Neurological Exam Neurological Exam: Alert, Awake, Oriented x3 - Psychiatric Exam Psychiatric exam: Flat Affect - Skin Skin Exam: Pallor Assessment and Plan (1) ESRF (end stage renal failure) Status: Acute (2) Pneumonia Status: Acute (3) Congestive heart disease Status: Acute (4) Diabetes Status: Acute
[2018-10-18 06:00] LABS: INR 1.2; PROTHROMBIN TIME 14.1 Seconds (9.8-13.1)
[2018-10-18] MEDS: Multivitamin Vitamin B Complex (Nephro-Vite) Tab PO SCH (08:38)
[2018-10-18] MEDS: FERRIC CITRATE PO SCH ×4 (08:38→21:58)
[2018-10-18] MEDS: Enoxaparin 120 mg Syringe SC SCH (08:38)
[2018-10-18] MEDS: GlipiZIDE 5 mg SR Tab PO SCH (08:40)
[2018-10-18] MEDS: Insulin Regular 100 units/ml SC SCH ×3 (08:42→17:49)
--- NOTE | 2018-10-18 12:39 | CP.PCM.PN ---
Subjective - Date & Time of Evaluation Date of Evaluation: 10/18/18 Time of Evaluation: 12:40 - Subjective Subjective: Improving better control of BP and HR. Still plethoric. PT i not therapeutic continue heparin. Objective - Vital Signs/Intake and Output Vital Signs (last 24 hours): Temp Pulse Resp BP Pulse Ox 98.1 F 93 H 18 128/68 96 10/18/18 12:05 10/18/18 12:05 10/18/18 12:05 10/18/18 12:05 10/18/18 12:05 - Medications Medications: Current Medications Albuterol/Ipratropium (Duoneb 3 Mg/0.5 Mg (3 Ml) Ud) 3 ml INH RQ6 PRN PRN Reason: Shortness of Breath Last Admin: 10/12/18 15:33 Dose: 3 ml Atorvastatin Calcium (Lipitor) 10 mg PO DAILY [facility] Last Admin: 10/18/18 08:39 Dose: 10 mg Enoxaparin Sodium (Lovenox) 110 mg SC DAILY [facility]; Protocol Last Admin: 10/18/18 08:38 Dose: 110 mg Glipizide (Glucotrol Xl) 5 mg PO DAILYWM [facility] Last Admin: 10/18/18 08:40 Dose: 5 mg Home Med (Ferric Citrate [Auryxia]) 3 tab PO TIDWM [facility] Last Admin: 10/18/18 08:38 Dose: 3 tab Vancomycin HCl 1 gm/ Sodium (Chloride) 250 mls @ 166.667 mls/hr IVPB MWF [facility]; Protocol Last Admin: 10/18/18 09:56 Dose: 166.667 mls/hr Ceftriaxone Sodium 1 gm/ (Sodium Chloride) 100 mls @ 100 mls/hr IVPB DAILY [facility]; Protocol Last Admin: 10/18/18 08:41 Dose: 100 mls/hr Insulin Human Regular (Humulin R) 0 units SC ACHS [facility]; Protocol Last Admin: 10/18/18 08:42 Dose: 1 units Labetalol HCl (Trandate) 200 mg PO BID [facility] Last Admin: 10/18/18 08:40 Dose: 200 mg Nitroglycerin (Nitrostat Sl Tab) 0.4 mg SL Q5M PRN PRN Reason: Pain, severe (8-10) Last Admin: 10/11/18 01:51 Dose: 0.4 mg Sitagliptin Phosphate (Januvia) 25 mg PO DAILY [facility] Last Admin: 10/18/18 08:38 Dose: 25 mg Vitamin B Complex/Vit C/Folic Acid (Nephro-Cecilia) 1 tab PO DAILY [facility] Last Admin: 10/18/18 08:38 Dose: 1 tab Warfarin Sodium (Coumadin) 10 mg PO QD5 [facility]; Protocol Stop: 10/18/18 17:01 - Labs Labs: 10/17/18 07:04 10/17/18 07:04 PT 14.1 Seconds (9.8-13.1) H 10/18/18 05:20 INR 1.2 10/18/18 05:20 APTT 35.3 Seconds (25.6-37.1) 10/16/18 11:08 - Constitutional Appears: Chronically Ill - Head Exam Head Exam: ATRAUMATIC, NORMAL INSPECTION, NORMOCEPHALIC - Eye Exam Eye Exam: Normal appearance - ENT Exam ENT Exam: Mucous Membranes Moist - Neck Exam Neck Exam: Full ROM - Respiratory Exam Respiratory Exam: Decreased Breath Sounds - Cardiovascular Exam Cardiovascular Exam: Tachycardia, Irregular Rhythm, +S1, +S2 - Extremities Exam Extremities Exam: Pedal Edema - Neurological Exam Neurological Exam: Alert, Awake, Oriented x3 - Psychiatric Exam Psychiatric exam: Flat Affect - Skin Skin Exam: Pallor Assessment and Plan (1) ESRF (end stage renal failure) Status: Acute (2) Pneumonia Status: Acute (3) Congestive heart disease Status: Acute (4) Diabetes Status: Acute
--- NOTE | 2018-10-18 13:04 | CP.PCM.PN ---
Subjective - Date & Time of Evaluation Date of Evaluation: 10/18/18 Time of Evaluation: 09:00 - Subjective Subjective: awake alert nad afebrile Objective - Vital Signs/Intake and Output Vital Signs (last 24 hours): Temp Pulse Resp BP Pulse Ox 98.1 F 93 H 18 128/68 96 10/18/18 12:05 10/18/18 12:05 10/18/18 12:05 10/18/18 12:05 10/18/18 12:05 - Medications Medications: Current Medications Albuterol/Ipratropium (Duoneb 3 Mg/0.5 Mg (3 Ml) Ud) 3 ml INH RQ6 PRN PRN Reason: Shortness of Breath Last Admin: 10/12/18 15:33 Dose: 3 ml Atorvastatin Calcium (Lipitor) 10 mg PO DAILY [facility] Last Admin: 10/18/18 08:39 Dose: 10 mg Enoxaparin Sodium (Lovenox) 110 mg SC DAILY [facility]; Protocol Last Admin: 10/18/18 08:38 Dose: 110 mg Glipizide (Glucotrol Xl) 5 mg PO DAILYWM [facility] Last Admin: 10/18/18 08:40 Dose: 5 mg Home Med (Ferric Citrate [Auryxia]) 3 tab PO TIDWM [facility] Last Admin: 10/18/18 12:35 Dose: 3 tab Vancomycin HCl 1 gm/ Sodium (Chloride) 250 mls @ 166.667 mls/hr IVPB MWF [facility]; Protocol Last Admin: 10/18/18 09:56 Dose: 166.667 mls/hr Ceftriaxone Sodium 1 gm/ (Sodium Chloride) 100 mls @ 100 mls/hr IVPB DAILY [facility]; Protocol Last Admin: 10/18/18 08:41 Dose: 100 mls/hr Insulin Human Regular (Humulin R) 0 units SC ACHS [facility]; Protocol Last Admin: 10/18/18 12:35 Dose: 2 units Labetalol HCl (Trandate) 200 mg PO BID [facility] Last Admin: 10/18/18 08:40 Dose: 200 mg Nitroglycerin (Nitrostat Sl Tab) 0.4 mg SL Q5M PRN PRN Reason: Pain, severe (8-10) Last Admin: 10/11/18 01:51 Dose: 0.4 mg Sitagliptin Phosphate (Januvia) 25 mg PO DAILY [facility] Last Admin: 10/18/18 08:38 Dose: 25 mg Vitamin B Complex/Vit C/Folic Acid (Nephro-Cecilia) 1 tab PO DAILY [facility] Last Admin: 10/18/18 08:38 Dose: 1 tab Warfarin Sodium (Coumadin) 10 mg PO QD5 [facility]; Protocol Stop: 10/18/18 17:01 - Labs Labs: 10/17/18 07:04 10/17/18 07:04 PT 14.1 Seconds (9.8-13.1) H 10/18/18 05:20 INR 1.2 10/18/18 05:20 APTT 35.3 Seconds (25.6-37.1) 10/16/18 11:08 - Constitutional Appears: Non-toxic, No Acute Distress, Chronically Ill - Head Exam Head Exam: ATRAUMATIC, NORMAL INSPECTION, NORMOCEPHALIC - Eye Exam Eye Exam: EOMI, Normal appearance, PERRL Pupil Exam: NORMAL ACCOMODATION, PERRL - ENT Exam ENT Exam: Mucous Membranes Moist, Normal Exam - Neck Exam Neck Exam: Full ROM, Normal Inspection. absent: Lymphadenopathy - Respiratory Exam Respiratory Exam: Clear to Ausculation Bilateral, NORMAL BREATHING PATTERN - Cardiovascular Exam Cardiovascular Exam: REGULAR RHYTHM, +S1, +S2. absent: Murmur - GI/Abdominal Exam GI & Abdominal Exam: Soft, Normal Bowel Sounds. absent: Tenderness - Rectal Exam Rectal Exam: Deferred - Exam Exam: NORMAL INSPECTION - Extremities Exam Extremities Exam: Full ROM, Normal Capillary Refill, Normal Inspection. absent: Joint Swelling, Pedal Edema - Back Exam Back Exam: NORMAL INSPECTION - Neurological Exam Neurological Exam: Alert, Awake, CN II-XII Intact, Normal Gait, Oriented x3 - Psychiatric Exam Psychiatric exam: Normal Affect, Normal Mood - Skin Skin Exam: Dry, Intact, Normal Color, Warm Assessment and Plan (1) Congestive heart disease Status: Acute (2) Diabetes Status: Acute (3) ESRF (end stage renal failure) Status: Acute (4) Pneumonia Status: Acute - Assessment and Plan (Free Text) Assessment: cont rx as per Dr Donald
--- NOTE | 2018-10-18 14:41 | CP.PCM.PN ---
Subjective - Date & Time of Evaluation Date of Evaluation: 10/18/18 Time of Evaluation: 14:38 - Subjective Subjective: Patient awake and conscious. Vital signs noted to be stable Patient feeling good no shortness of breath no difficulty breathing no nausea no vomiting. Objective - Vital Signs/Intake and Output Vital Signs (last 24 hours): Temp Pulse Resp BP Pulse Ox 98.1 F 93 H 18 128/68 96 10/18/18 12:05 10/18/18 12:05 10/18/18 12:05 10/18/18 12:05 10/18/18 12:05 - Medications Medications: Current Medications Albuterol/Ipratropium (Duoneb 3 Mg/0.5 Mg (3 Ml) Ud) 3 ml INH RQ6 PRN PRN Reason: Shortness of Breath Last Admin: 10/12/18 15:33 Dose: 3 ml Atorvastatin Calcium (Lipitor) 10 mg PO DAILY [facility] Last Admin: 10/18/18 08:39 Dose: 10 mg Enoxaparin Sodium (Lovenox) 110 mg SC DAILY [facility]; Protocol Last Admin: 10/18/18 08:38 Dose: 110 mg Glipizide (Glucotrol Xl) 5 mg PO DAILYWM [facility] Last Admin: 10/18/18 08:40 Dose: 5 mg Home Med (Ferric Citrate [Auryxia]) 3 tab PO TIDWM [facility] Last Admin: 10/18/18 12:35 Dose: 3 tab Vancomycin HCl 1 gm/ Sodium (Chloride) 250 mls @ 166.667 mls/hr IVPB MWF [facility]; Protocol Last Admin: 10/18/18 09:56 Dose: 166.667 mls/hr Ceftriaxone Sodium 1 gm/ (Sodium Chloride) 100 mls @ 100 mls/hr IVPB DAILY [facility]; Protocol Last Admin: 10/18/18 08:41 Dose: 100 mls/hr Insulin Human Regular (Humulin R) 0 units SC ACHS [facility]; Protocol Last Admin: 10/18/18 12:35 Dose: 2 units Labetalol HCl (Trandate) 200 mg PO BID [facility] Last Admin: 10/18/18 08:40 Dose: 200 mg Nitroglycerin (Nitrostat Sl Tab) 0.4 mg SL Q5M PRN PRN Reason: Pain, severe (8-10) Last Admin: 10/11/18 01:51 Dose: 0.4 mg Sitagliptin Phosphate (Januvia) 25 mg PO DAILY [facility] Last Admin: 10/18/18 08:38 Dose: 25 mg Vitamin B Complex/Vit C/Folic Acid (Nephro-Cecilia) 1 tab PO DAILY [facility] Last Admin: 10/18/18 08:38 Dose: 1 tab Warfarin Sodium (Coumadin) 10 mg PO QD5 [facility]; Protocol Stop: 10/18/18 17:01 - Labs Labs: 10/17/18 07:04 10/17/18 07:04 PT 14.1 Seconds (9.8-13.1) H 10/18/18 05:20 INR 1.2 10/18/18 05:20 APTT 35.3 Seconds (25.6-37.1) 10/16/18 11:08 - Constitutional Appears: No Acute Distress - Eye Exam Eye Exam: Conjunctival injection - ENT Exam ENT Exam: Mucous Membranes Moist - Neck Exam Neck Exam: absent: Lymphadenopathy - Respiratory Exam Respiratory Exam: NORMAL BREATHING PATTERN - Cardiovascular Exam Cardiovascular Exam: Irregular Rhythm. absent: Gallop, JVD, Rubs - GI/Abdominal Exam GI & Abdominal Exam: Soft, Normal Bowel Sounds - Extremities Exam Extremities Exam: absent: Calf Tenderness - Back Exam Back Exam: absent: CVA tenderness (L), CVA tenderness (R) - Neurological Exam Neurological Exam: Alert - Psychiatric Exam Psychiatric exam: Normal Affect - Skin Skin Exam: absent: Cyanosis Assessment and Plan (1) Atrial fibrillation with RVR Status: Acute (2) Congestive heart disease Status: Acute (3) Diabetes Status: Acute (4) ESRF (end stage renal failure) Assessment & Plan: esrd on HD via [facility] [place] [facility] [place]f/htn/hyperkalemia/pnemonia/anemia/secondary hyperpara/a fib Plan Continue hemodialysis schedule TTS Appears to be comfortable. Patient receiving anticoagulation and to be titrated accordingly as per primary team Antibiotics as per GFR Status: Acute (5) Pneumonia Status: Acute
[2018-10-19 06:51] LABS: INR 1.7; PROTHROMBIN TIME 19.2 Seconds (9.8-13.1)
[2018-10-19] MEDS: FERRIC CITRATE PO SCH ×3 (08:24→17:22)
[2018-10-19] MEDS: Enoxaparin 120 mg Syringe SC SCH (08:26)
[2018-10-19] MEDS: Multivitamin Vitamin B Complex (Nephro-Vite) Tab PO SCH (08:27)
[2018-10-19] MEDS: GlipiZIDE 5 mg SR Tab PO SCH (08:27)
[2018-10-19] MEDS: Insulin Regular 100 units/ml SC SCH ×4 (08:28→21:59)
--- NOTE | 2018-10-19 18:38 | CP.PCM.PN ---
Subjective - Date & Time of Evaluation Date of Evaluation: 10/19/18 Time of Evaluation: 18:35 - Subjective Subjective: renal note no events overnight vitals reviewed heent normal op moist no jvd s1s2 present no resp distress abd soft nt nd ao times 3 skin normal cooperative esrd on HD via AVF TTS @ [facility], missed HD sys chf/htn/hyperkalemia/pnemonia/anemia/secondary hyperpara/a fib hd per schedule tts lytes ok volume stable bp stable cards on board for chf and a fib Objective - Vital Signs/Intake and Output Vital Signs (last 24 hours): Temp Pulse Resp BP Pulse Ox 98.4 F 73 18 140/69 99 10/19/18 16:12 10/19/18 16:12 10/19/18 16:12 10/19/18 16:12 10/19/18 16:12 - Medications Medications: Current Medications Atorvastatin Calcium (Lipitor) 10 mg PO DAILY [facility] Last Admin: 10/19/18 08:27 Dose: 10 mg Glipizide (Glucotrol Xl) 5 mg PO DAILYWM [facility] Last Admin: 10/19/18 08:27 Dose: 5 mg Home Med (Ferric Citrate [Auryxia]) 3 tab PO TIDWM [facility] Last Admin: 10/19/18 17:22 Dose: Not Given Vancomycin HCl 1 gm/ Sodium (Chloride) 250 mls @ 166.667 mls/hr IVPB MWF [facility]; Protocol Last Admin: 10/18/18 09:56 Dose: 166.667 mls/hr Ceftriaxone Sodium 1 gm/ (Sodium Chloride) 100 mls @ 100 mls/hr IVPB DAILY [facility]; Protocol Last Admin: 10/19/18 08:38 Dose: 100 mls/hr Insulin Human Regular (Humulin R) 0 units SC ACHS [facility]; Protocol Last Admin: 10/19/18 17:23 Dose: 1 units Labetalol HCl (Trandate) 200 mg PO BID [facility] Last Admin: 10/19/18 17:24 Dose: 200 mg Nitroglycerin (Nitrostat Sl Tab) 0.4 mg SL Q5M PRN PRN Reason: Pain, severe (8-10) Last Admin: 10/11/18 01:51 Dose: 0.4 mg Sitagliptin Phosphate (Januvia) 25 mg PO DAILY [facility] Last Admin: 10/19/18 08:27 Dose: 25 mg Vitamin B Complex/Vit C/Folic Acid (Nephro-Cecilia) 1 tab PO DAILY [facility] Last Admin: 10/19/18 08:27 Dose: 1 tab - Labs Labs: 10/17/18 07:04 10/17/18 07:04 PT 19.2 Seconds (9.8-13.1) H D 10/19/18 06:02 INR 1.7 10/19/18 06:02 APTT 35.3 Seconds (25.6-37.1) 10/16/18 11:08
--- NOTE | 2018-10-20 07:34 | CP.PCM.PN ---
Subjective - Date & Time of Evaluation Date of Evaluation: 10/19/18 Time of Evaluation: 20:00 - Subjective Subjective: improving still not therapeutic pt continue present rx Objective - Vital Signs/Intake and Output Vital Signs (last 24 hours): Temp Pulse Resp BP Pulse Ox 97.7 F 87 18 126/88 96 10/20/18 05:02 10/20/18 05:02 10/20/18 05:02 10/20/18 05:02 10/20/18 05:02 - Medications Medications: Current Medications Atorvastatin Calcium (Lipitor) 10 mg PO DAILY [facility] Last Admin: 10/19/18 08:27 Dose: 10 mg Glipizide (Glucotrol Xl) 5 mg PO DAILYWM [facility] Last Admin: 10/19/18 08:27 Dose: 5 mg Home Med (Ferric Citrate [Auryxia]) 3 tab PO TIDWM [facility] Last Admin: 10/19/18 17:22 Dose: Not Given Vancomycin HCl 1 gm/ Sodium (Chloride) 250 mls @ 166.667 mls/hr IVPB MWF [facility]; Protocol Last Admin: 10/18/18 09:56 Dose: 166.667 mls/hr Ceftriaxone Sodium 1 gm/ (Sodium Chloride) 100 mls @ 100 mls/hr IVPB DAILY [facility]; Protocol Last Admin: 10/19/18 08:38 Dose: 100 mls/hr Insulin Human Regular (Humulin R) 0 units SC ACHS [facility]; Protocol Last Admin: 10/19/18 21:59 Dose: Not Given Labetalol HCl (Trandate) 200 mg PO BID [facility] Last Admin: 10/19/18 17:24 Dose: 200 mg Nitroglycerin (Nitrostat Sl Tab) 0.4 mg SL Q5M PRN PRN Reason: Pain, severe (8-10) Last Admin: 10/11/18 01:51 Dose: 0.4 mg Sitagliptin Phosphate (Januvia) 25 mg PO DAILY [facility] Last Admin: 10/19/18 08:27 Dose: 25 mg Vitamin B Complex/Vit C/Folic Acid (Nephro-Cecilia) 1 tab PO DAILY [facility] Last Admin: 10/19/18 08:27 Dose: 1 tab - Labs Labs: 10/17/18 07:04 10/17/18 07:04 PT 19.2 Seconds (9.8-13.1) H D 10/19/18 06:02 INR 1.7 10/19/18 06:02 APTT 35.3 Seconds (25.6-37.1) 10/16/18 11:08 - Constitutional Appears: Chronically Ill - Head Exam Head Exam: ATRAUMATIC, NORMAL INSPECTION, NORMOCEPHALIC - Eye Exam Eye Exam: Normal appearance - ENT Exam ENT Exam: Normal Exam - Neck Exam Neck Exam: Full ROM - Respiratory Exam Respiratory Exam: Decreased Breath Sounds - Cardiovascular Exam Cardiovascular Exam: Tachycardia, Irregular Rhythm, +S1, +S2 - GI/Abdominal Exam GI & Abdominal Exam: Normal Bowel Sounds - Extremities Exam Extremities Exam: Pedal Edema - Neurological Exam Neurological Exam: Alert, Awake, CN II-XII Intact, Oriented x3 - Psychiatric Exam Psychiatric exam: Normal Affect Assessment and Plan (1) ESRF (end stage renal failure) Status: Acute (2) Pneumonia Status: Acute (3) Congestive heart disease Status: Acute (4) Diabetes Status: Acute
[2018-10-20] MEDS: FERRIC CITRATE PO SCH ×3 (09:38→16:59)
[2018-10-20] MEDS: GlipiZIDE 5 mg SR Tab PO SCH (09:39)
[2018-10-20] MEDS: Insulin Regular 100 units/ml SC SCH ×4 (09:40→17:01)
[2018-10-20] MEDS: Multivitamin Vitamin B Complex (Nephro-Vite) Tab PO SCH (09:41)
[2018-10-20 09:53] LABS: BASO # 0.1 K/uL (0.0-0.2); BASO % 1.2 % (0.0-2.0); EOS # 0.5 K/uL (0.0-0.7); EOS % 7.3 % (0.0-4.0); HEMOGLOBIN 11.2 g/dL (12.0-18.0); LYMPH # 1.3 K/uL (1.0-4.3); LYMPH % 18.5 % (20.0-40.0); MEAN CELL VOLUME 92.3 fl (80.0-94.0); MEAN CORPUSCULAR HEMOGLOBIN 30.2 pg (27.0-31.0); MEAN CORPUSCULAR HGB CONC 32.7 g/dL (33.0-37.0); MONO # 0.5 K/uL (0.0-0.8); MONO % 7.7 % (0.0-10.0); NEUT # 4.5 K/uL (1.8-7.0); NEUT % 65.3 % (50.0-75.0); RBC 3.7 Mil/uL (4.40-5.90); RED CELL DISTRIBUTION WIDTH 15.1 % (11.5-14.5); WHITE BLOOD COUNT 6.9 K/uL (4.8-10.8)
[2018-10-20 09:59] LABS: INR 2.3; PROTHROMBIN TIME 26.1 Seconds (9.8-13.1)
--- NOTE | 2018-10-20 13:52 | CP.PCM.PN ---
Subjective - Date & Time of Evaluation Date of Evaluation: 10/20/18 Time of Evaluation: 09:00 - Subjective Subjective: improving less cough no fever Objective - Vital Signs/Intake and Output Vital Signs (last 24 hours): Temp Pulse Resp BP Pulse Ox 98.2 F 82 20 106/70 99 10/20/18 12:07 10/20/18 12:07 10/20/18 12:07 10/20/18 12:07 10/20/18 12:07 - Medications Medications: Current Medications Atorvastatin Calcium (Lipitor) 10 mg PO DAILY [facility] Last Admin: 10/20/18 09:41 Dose: 10 mg Glipizide (Glucotrol Xl) 5 mg PO DAILYWM [facility] Last Admin: 10/20/18 09:39 Dose: 5 mg Home Med (Ferric Citrate [Auryxia]) 3 tab PO TIDWM [facility] Last Admin: 10/20/18 13:26 Dose: 3 tab Vancomycin HCl 1 gm/ Sodium (Chloride) 250 mls @ 166.667 mls/hr IVPB MWF [facility]; Protocol Last Admin: 10/18/18 09:56 Dose: 166.667 mls/hr Insulin Human Regular (Humulin R) 0 units SC ACHS [facility]; Protocol Last Admin: 10/20/18 13:27 Dose: 2 units Labetalol HCl (Trandate) 200 mg PO BID [facility] Last Admin: 10/20/18 09:42 Dose: 200 mg Nitroglycerin (Nitrostat Sl Tab) 0.4 mg SL Q5M PRN PRN Reason: Pain, severe (8-10) Last Admin: 10/11/18 01:51 Dose: 0.4 mg Sitagliptin Phosphate (Januvia) 25 mg PO DAILY [facility] Last Admin: 10/20/18 09:41 Dose: 25 mg Vitamin B Complex/Vit C/Folic Acid (Nephro-Cecilia) 1 tab PO DAILY [facility] Last Admin: 10/20/18 09:41 Dose: 1 tab Warfarin Sodium (Coumadin) 4 mg PO QD5 [facility]; Protocol Stop: 10/20/18 17:01 - Labs Labs: 10/20/18 08:35 10/20/18 09:35 PT 26.1 Seconds (9.8-13.1) H D 10/20/18 08:35 INR 2.3 10/20/18 08:35 APTT 35.3 Seconds (25.6-37.1) 10/16/18 11:08 - Constitutional Appears: Non-toxic, No Acute Distress, Chronically Ill - Head Exam Head Exam: ATRAUMATIC, NORMAL INSPECTION, NORMOCEPHALIC - Eye Exam Eye Exam: EOMI, Normal appearance, PERRL Pupil Exam: NORMAL ACCOMODATION, PERRL - ENT Exam ENT Exam: Mucous Membranes Moist, Normal Exam - Neck Exam Neck Exam: Full ROM, Normal Inspection. absent: Lymphadenopathy - Respiratory Exam Respiratory Exam: Decreased Breath Sounds, Prolonged Expiratory Phase - Cardiovascular Exam Cardiovascular Exam: REGULAR RHYTHM, +S1, +S2. absent: Murmur - GI/Abdominal Exam GI & Abdominal Exam: Soft, Normal Bowel Sounds. absent: Tenderness - Rectal Exam Rectal Exam: Deferred - Exam Exam: NORMAL INSPECTION - Extremities Exam Extremities Exam: Full ROM, Normal Capillary Refill, Normal Inspection. absent: Joint Swelling, Pedal Edema - Back Exam Back Exam: NORMAL INSPECTION - Neurological Exam Neurological Exam: Alert, Awake, CN II-XII Intact, Normal Gait, Oriented x3 - Psychiatric Exam Psychiatric exam: Normal Affect, Normal Mood - Skin Skin Exam: Dry, Intact, Normal Color, Warm Assessment and Plan (1) Congestive heart disease Status: Acute (2) Diabetes Status: Acute (3) ESRF (end stage renal failure) Status: Acute (4) Pneumonia Status: Acute - Assessment and Plan (Free Text) Assessment: await follow up CXR possible d/c home
--- NOTE | 2018-10-20 14:45 | RAD ---
Date of service: 10/20/2018 HISTORY: Follow-up pneumonia COMPARISON: Comparison made with prior chest radiograph dated 10/11/2018. TECHNIQUE: Chest PA and lateral views FINDINGS: LUNGS: Interval improvement previously noted patchy bilateral infiltrates however there is persistent left lower lobe atelectasis and/or small infiltrate with left effusion. PLEURA: No significant pleural effusion identified. No pneumothorax apparent. CARDIOVASCULAR: No aortic atherosclerotic calcification present. Heart remains mildly enlarged. No pulmonary vascular congestion. OSSEOUS STRUCTURES: Mild multilevel degenerative spondylosis of the thoracic spine. VISUALIZED UPPER ABDOMEN: Normal. OTHER FINDINGS: None. IMPRESSION: Interval improvement previously noted patchy bilateral infiltrates however there is persistent left lower lobe atelectasis and/or small infiltrate with left effusion.
[2018-10-20 16:29] VITALS: BP 111/76; PULSE 69; RESP 18; TEMP 98.6; O2SAT 100
--- NOTE | 2018-10-20 17:53 | CP.PCM.DIS ---
Provider - Provider Date of Admission: 10/10/18 11:42 Attending physician: Ha Donald MD Consults: 10/10/18 12:16 Nephrology Consult Stat Comment: Consulting Provider: Gino Anthony Consulting Physician: Gino Anthony Reason for Consult: emergent dialysis, ESRD 10/11/18 12:51 Infectious Disease Consult Routine Comment: Consulting Provider: Sarmad Brothers Consulting Physician: Sarmad Brothers Reason for Consult: pneumonia ESRF HD 10/12/18 19:10 Cardiology Consult Routine Comment: Consulting Provider: Liu Wolf Consulting Physician: Liu Wolf Reason for Consult: 52 YO Male with new onset A fib. Please eval. 10/14/18 14:04 Physician Consult Routine Comment: Consulting Provider: Ant Cole Consulting Physician: Ant Cole Reason for Consult: hx ? opth bleed Additional Comments: pt. with hx DM, ESRD on HD with ;new onset Afib; needs anticoagulation but reports hx opth bleeding Time Spent in preparation of Discharge (in minutes): 30 Diagnosis - Discharge Diagnosis (1) ESRF (end stage renal failure) Status: Acute (2) Pneumonia Status: Acute (3) Congestive heart disease Status: Acute (4) Diabetes Status: Acute Hospital Course - Lab Results Lab Results: Micro Results 10/10/18 21:40 Blood-Venous Blood Culture - Final NO GROWTH AFTER 5 DAYS 10/10/18 21:40 Blood-Venous Gram Stain - Final TEST NOT PERFORMED 10/10/18 21:40 Blood-Venous Blood Culture - Final NO GROWTH AFTER 5 DAYS 10/10/18 21:40 Blood-Venous Gram Stain - Final TEST NOT PERFORMED 10/10/18 10:30 Blood-Venous Blood Culture - Final NO GROWTH AFTER 5 DAYS 10/10/18 10:30 Blood-Venous Gram Stain - Final TEST NOT PERFORMED 10/10/18 10:45 Blood-Venous Blood Culture - Final NO GROWTH AFTER 5 DAYS 10/10/18 10:45 Blood-Venous Gram Stain - Final TEST NOT PERFORMED 10/13/18 15:27 Sputum Gram Stain - Final 10/13/18 15:27 Sputum Sputum Culture - Final NORMAL ORAL DARIA 10/12/18 16:25 Urine Random Urine Culture - Final No Growth (<1,000 CFU/ML) Most Recent Lab Values WBC 6.9 K/uL (4.8-10.8) 10/20/18 08:35 RBC 3.70 Mil/uL (4.40-5.90) L 10/20/18 08:35 Hgb 11.2 g/dL (12.0-18.0) L 10/20/18 08:35 Hct 34.2 % (35.0-51.0) L 10/20/18 08:35 MCV 92.3 fl (80.0-94.0) 10/20/18 08:35 MCH 30.2 pg (27.0-31.0) 10/20/18 08:35 MCHC 32.7 g/dL (33.0-37.0) L 10/20/18 08:35 RDW 15.1 % (11.5-14.5) H 10/20/18 08:35 Plt Count 324 K/uL (130-400) 10/20/18 08:35 MPV 8.0 fl (7.2-11.7) 10/20/18 08:35 Neut % (Auto) 65.3 % (50.0-75.0) 10/20/18 08:35 Lymph % (Auto) 18.5 % (20.0-40.0) L 10/20/18 08:35 Moca % (Auto) 7.7 % (0.0-10.0) 10/20/18 08:35 Eos % (Auto) 7.3 % (0.0-4.0) H 10/20/18 08:35 Baso % (Auto) 1.2 % (0.0-2.0) 10/20/18 08:35 Neut # (Auto) 4.5 K/uL (1.8-7.0) 10/20/18 08:35 Lymph # (Auto) 1.3 K/uL (1.0-4.3) 10/20/18 08:35 Moca # (Auto) 0.5 K/uL (0.0-0.8) 10/20/18 08:35 Eos # (Auto) 0.5 K/uL (0.0-0.7) 10/20/18 08:35 Baso # (Auto) 0.1 K/uL (0.0-0.2) 10/20/18 08:35 Neutrophils % (Manual) 77 % (42-75) H 10/12/18 08:45 Lymphocytes % (Manual) 10 % (20-50) L 10/12/18 08:45 Monocytes % (Manual) 8 % (0-10) 10/12/18 08:45 Eosinophils % (Manual) 2 % (0-7) 10/12/18 08:45 Metamyelocytes % 2 % (0-0) H 10/12/18 08:45 Myelocytes % 1 % (0-0) H 10/12/18 08:45 Platelet Estimate Normal (NORMAL) 10/12/18 08:45 Large Platelets Present 10/12/18 08:45 Hypochromasia (manual) Slight 10/12/18 08:45 Anisocytosis (manual) Slight 10/12/18 08:45 Tear Drop Cells Slight 10/12/18 08:45 Ovalocytes Slight 10/12/18 08:45 PT 26.1 Seconds (9.8-13.1) H D 10/20/18 08:35 INR 2.3 10/20/18 08:35 APTT 35.3 Seconds (25.6-37.1) 10/16/18 11:08 Sodium 137 mmol/l (132-148) 10/20/18 09:35 Potassium 4.0 MMOL/L (3.6-5.0) 10/20/18 09:35 Chloride 97 mmol/L (98-107) L 10/20/18 09:35 Carbon Dioxide 27 mmol/L (22-30) 10/20/18 09:35 Anion Gap 17 (10-20) 10/20/18 09:35 BUN 33 mg/dl (9-20) H 10/20/18 09:35 Creatinine 7.4 mg/dl (0.8-1.5) H* D 10/20/18 09:35 Est GFR ( Amer) 9 10/20/18 09:35 Est GFR (Non-Af Amer) 8 10/20/18 09:35 POC Glucose (mg/dL) 202 mg/dL (65-110) H 10/20/18 16:17 Random Glucose 152 mg/dL (75-110) H 10/20/18 09:35 Hemoglobin A1c 8.2 % (4.2-6.5) H 10/12/18 08:45 Calcium 9.0 mg/dL (8.4-10.2) 10/20/18 09:35 Phosphorus 3.5 mg/dl (2.5-4.5) 10/11/18 05:20 Magnesium 2.1 MG/DL (1.6-2.3) 10/12/18 19:08 Troponin I 0.0260 ng/mL (0.00-0.120) 10/12/18 19:08 Procalcitonin 0.67 NG/ML (0.19-0.49) H 10/11/18 15:27 Urine Color Yellow (YELLOW) 10/12/18 16:25 Urine Clarity Cloudy (Clear) 10/12/18 16:25 Urine pH 6.0 (5.0-8.0) 10/12/18 16:25 Ur Specific [place] 1.013 (1.003-1.030) 10/12/18 16:25 Urine Protein >=500 mg/dL (NEGATIVE) 10/12/18 16:25 Urine Glucose (UA) >=500 mg/dL (NEGATIVE) 10/12/18 16:25 Urine Ketones Negative mg/dL (NEGATIVE) 10/12/18 16:25 Urine Blood Small (NEGATIVE) 10/12/18 16:25 Urine Nitrate Negative (NEGATIVE) 10/12/18 16:25 Urine Bilirubin Negative (NEGATIVE) 10/12/18 16:25 Urine Urobilinogen 0.2-1.0 mg/dL (0.2-1.0) 10/12/18 16:25 Ur Leukocyte Esterase Neg Fatuma/uL (Negative) 10/12/18 16:25 Urine RBC (Auto) 1 /hpf (0-3) 10/12/18 16:25 Urine Microscopic WBC 8 /hpf (0-5) H 10/12/18 16:25 Ur Squamous Epith Cells < 1 /hpf (0-5) 10/12/18 16:25 Urine Bacteria Occ (<OCC) H 10/12/18 16:25 Digoxin 1.3 ng/mL (0.8-2.0) 10/17/18 05:17 Influenza Typ A,B (EIA) Negative for flu a/b (NEGATIVE) 10/10/18 10:20 Ur L.pneumophila Ag Negative (NEGATIVE) 10/12/18 16:45 Mycoplasma pneumon IgG <=0.90 (<=0.90) 10/11/18 15:27 Mycoplasma pneumon IgM 61 U/mL (<770) 10/11/18 15:27 - Hospital Course Hospital Course: 52 y/o male presents to the ED for evaluation of one week of severe coughing. Patient notes he has been unable to sleep and feels fever. Patient is currently complaining of pain to the right hip. Patient with ESRF on HD he is not c/o with HD for one week. Otherwise, patient denies chest pain, nausea and vomiting. An infiltrate. During the hospitalization he developed a atrial fibrillation started on warfarin. Today hemodynamically stable will dc home close f/u in am. Discharge Exam - Head Exam Head Exam: ATRAUMATIC, NORMAL INSPECTION, NORMOCEPHALIC - Eye Exam Eye Exam: Normal appearance - ENT Exam ENT Exam: Normal Exam - Neck Exam Neck exam: Full Rom - Respiratory Exam Respiratory Exam: Clear to PA & Lateral - Cardiovascular Exam Cardiovascular Exam: Irregular Rhythm, +S1, +S2 - GI/Abdominal Exam GI & Abdominal Exam: Normal Bowel Sounds - Neurological Exam Neurological exam: Alert, CN II-XII Intact, Normal Gait, Oriented x3, Reflexes Normal - Psychiatric Exam Psychiatric exam: Normal Affect - Skin Skin Exam: Normal Color Discharge Plan - Follow Up Plan Condition: FAIR Disposition: HOME/ ROUTINE Instructions: Atrial Fibrillation (DC), Pneumonia, Adult (DC), End Stage Kidney Disease (DC) Additional Instructions: follow up appt with on sunday10/23/18 at 2:00pm Referrals: Ha Donald MD [Family Provider] -
--- NOTE | 2018-10-22 14:31 | PQF ---
PROVIDER RESPONSE TEXT: Anemia secondary to renal failure REVIEWER QUERY TEXT: Anemia Type PATIENT HAS ESRD: COULD YOU PLEASE SPECIFY IF ANEMIA IS CAUSED FROM HIS RENAL FAILURE? Anemia is documented in the Medical Record. Please specify the cause (includes suspected or probable cause) Such as: -- Due to acute blood loss -- Due to chronic blood loss -- Due to iron deficiency -- Due to postoperative blood loss -- Due to chronic disease -- Other, please specify The patient's Clinical Indicators include: XXX Query created by: Viviana Pike on 10/21/2018 4:27 PM Electronically signed by: Ha Donald MD 10/22/2018 2:28 PM
--- NOTE | 2018-10-22 14:31 | PQF ---
PROVIDER RESPONSE TEXT: Bacterial pneumonia REVIEWER QUERY TEXT: Pneumonia Specificity PLEASE CLARIFY THE TYPE OF PNEUMONIA ? Pneumonia is documented in the Medical Record. Please specify the type of pneumonia and the causative organism (includes probable or suspected) Such as: Type: -- Aspiration pneumonia (please also specify the aspirate) - (please specify cause) - Please indicate if the aspiration is postprocedure -- Bacterial (please document suspected or probable organism) -- Bronchopneumonia (please document suspected or probable organism) -- Interstitial pneumonia -- Organizing pneumonia / BOOP -- Pneumonia with influenza, rosemary flu, or H1N1 flu -- RSV -- Tuberculosis, pulmonary -- Viral -- Other, please specify The patient's Clinical Indicators include: XXX Query created by: Viviana Pike on 10/21/2018 4:13 PM Electronically signed by: Ha Donald MD 10/22/2018 2:28 PM
--- NOTE | 2018-10-22 14:31 | PQF ---
PROVIDER RESPONSE TEXT: Systolic congestion failure REVIEWER QUERY TEXT: CHF Acuity and Type COULD YOU PLEASE CLARIFY THE TYPE AND ACUITY OF CHF? Congestive Heart Failure is documented in the Medical Record. Please document the type and acuity (in cludes probable or suspected) Such as: Type: -- Systolic -- Diastolic -- Combined -- Other, please specify Acuity: -- Acute -- Chronic -- Acute on chronic -- Other, please specify Also please document the underlying cause of the CHF (includes probable or suspected) The patient's Clinical Indicators include: XXX Query created by: Viviana Pike on 10/21/2018 3:51 PM Electronically signed by: Ha Donald MD 10/22/2018 2:28 PM
== END 2018-10-20 18:40 | disposition home or self-care (01) | DRG 291 ==
LOC: H.ER 09:17 → H.ERHOLD 11:42 → H.TEL 16:42
PROVIDERS: ADMIT Internal Medicine; ATTEND Internal Medicine
PROC: 5A1D70Z Performance of Urinary Filtration, Intermittent, Less than 6 Hours Per Day (ICD-10-PCS; principal; 2018-10-15)
PROC: 5A1D70Z Performance of Urinary Filtration, Intermittent, Less than 6 Hours Per Day (ICD-10-PCS; 2018-10-17)
DX: I13.2 Hypertensive heart and chronic kidney disease with heart failure and with stage 5 chronic kidney disease, or end stage renal disease (principal); J15.9 Unspecified bacterial pneumonia; N18.6 End stage renal disease; I50.21 Acute systolic (congestive) heart failure; J44.0 Chronic obstructive pulmonary disease with (acute) lower respiratory infection; I48.91 Unspecified atrial fibrillation; Z87.01 Personal history of pneumonia (recurrent); Z99.2 Dependence on renal dialysis; D63.1 Anemia in chronic kidney disease; Z91.81 History of falling; F51.3 Sleepwalking [somnambulism]; Z79.84 Long term (current) use of oral hypoglycemic drugs; Z79.899 Other long term (current) drug therapy; I25.10 Atherosclerotic heart disease of native coronary artery without angina pectoris; R00.0 Tachycardia, unspecified; R06.03 Acute respiratory distress; E11.22 Type 2 diabetes mellitus with diabetic chronic kidney disease; E11.311 Type 2 diabetes mellitus with unspecified diabetic retinopathy with macular edema; E87.5 Hyperkalemia; G47.30 Sleep apnea, unspecified; H25.13 Age-related nuclear cataract, bilateral; H43.11 Vitreous hemorrhage, right eye